=== PATIENT | male | born 1965 | race Two or more races ===

== ENCOUNTER 2020-09-19 07:16 | Inpatient (IN) | payer MEDICAID ==
[~2020-09-19] VITALS: Ht 170.2 cm; Wt 101.2 kg
--- NOTE | 2020-09-19 07:18 | NUR ---
Payal jaquez in [facility] - 09/19/20 [address] DOW AT [facility]
--- NOTE | 2020-09-19 07:21 | NUR ---
[id number], from home, c/o weakness x 2 days, BS 137. to ER bed 9, hooked to case monitor, BP cuff and POX, VSS. changed to hosp gown, warm blanket provided, patient AAO x 1, breathing even and unlabored. NAD noted. awaiting MD islas.
--- NOTE | 2020-09-19 07:21 | NUR ---
DR DOW AT BEDSIDE
[2020-09-19] MEDS ORDERED: IV NS 0.9% 1,000 ML BAG IV ONE (07:30)
[2020-09-19 07:47] LABS: BASOPHILS % (AUTO) 0.6 % (0.0-2.0); EOSINOPHILS % (AUTO) 1.7 % (0.0-6.0); HEMATOCRIT 37 % (39-51); LYMPHOCYTES # (AUTO) 1.8 /CMM (0.8-4.8); LYMPHOCYTES % (AUTO) 29.7 % (20.0-44.0); MEAN CORPUSCULAR HGB CONC 35 g/dl (31.0-36.0); MEAN CORPUSCULAR VOLUME 96 fL (80-96); MONOCYTES # (AUTO) 0.9 /CMM (0.1-1.30); MONOCYTES % (AUTO) 15.7 % (2.0-12.0); NEUTROPHILS # (AUTO) 3.1 /CMM (1.8-8.9); NEUTROPHILS % (AUTO) 52.3 % (43.0-81.0); PLATELET COUNT (AUTO) 131 /CMM (150-450); RED BLOOD CELL COUNT(AUTO) 3.86 MIL/uL (4.5-6.0); WHITE BLOOD COUNT (AUTO) 5.9 K/uL (4.3-11.0)
[2020-09-19 07:57] LABS: ALCOHOL, BLOOD < 3 mg/dL (0-0); CALCIUM, SERUM 9.2 mg/dL (8.5-10.1); CARBON DIOXIDE 22 mmol/L (21-32); CHLORIDE 99 mmol/L (98-107); CREATININE 1.6 mg/dL (0.6-1.3); GLUCOSE 166 mg/dL (74-106); POTASSIUM 4.8 mmol/L (3.5-5.1); SODIUM SERUM 133 mmol/L (136-145); UREA NITROGEN, BLOOD 42 mg/dL (7-18)
[2020-09-19 08:01] LABS: SERUM AMMONIA 142 umol/L (11-32)
--- NOTE | 2020-09-19 08:01 | NUR ---
RAPID COVID SWAB DONE AND SENT TO LAB
--- NOTE | 2020-09-19 08:02 | NUR ---
PHYSICIAN INTENSIVIST AT BEDSIDE
[2020-09-19 08:03] LABS: ALANINE AMINOTRANSFERASE 32 U/L (12-78); ALBUMIN 3.1 g/dL (3.4-5.0); ALKALINE PHOSPHATASE 141 U/L (46-116); ASPARTATE AMINOTRANSFERASE 53 U/L (15-37); BILIRUBIN,DIRECT 0.9 mg/dL (0.0-0.2); BILIRUBIN,TOTAL 2.7 mg/dL (0.2-1.0); TOTAL PROTEIN, SERUM 8.4 g/dL (6.4-8.2)
--- NOTE | 2020-09-19 08:23 | NUR ---
PATIENT WHEELED BACK VIA GURNEY BY [employer] FROM CT SCAN
[2020-09-19] MEDS ORDERED: FAMO20TA8 PO (08:31)
[2020-09-19] MEDS ORDERED: LEVO50TA8 PO (08:31)
[2020-09-19] MEDS ORDERED: CHOL200059 PO (08:31)
[2020-09-19] MEDS ORDERED: THIA100T88 PO (08:31)
[2020-09-19] MEDS ORDERED: ASCO500T20 PO (08:31)
[2020-09-19] MEDS ORDERED: METF-881 PO (08:31)
--- NOTE | 2020-09-19 08:33 | NUR ---
URINE SAMPLE COLLECTED VIA STRAIGHT CATHETER. URINE SAMPLE SENT TO LAB
[2020-09-19 08:38] LABS: THYROID STIMULATING HORMONE 3.837 uIU/mL (0.358-3.74)
[2020-09-19 08:40] LABS: EOSINOPHILS % (MANUAL) 2 % (0-4); LYMPHOCYTES % (MANUAL) 25 % (16-48); MONOCYTES % (MANUAL) 15 % (0-11.0); NEUTROPHILS % (MANUAL) 58 (42-76)
--- NOTE | 2020-09-19 08:47 | NUR ---
CONTRACT ADMINISTRATIVE ASSISTANT AT BEDSIDE FOR MARJ
[2020-09-19] MEDS ORDERED: LACTULOSE 10 G/15 ML UDC (PYXIS) PO ONE (09:00)
[2020-09-19 09:05] LABS: BILIRUBIN,URINE NEGATIVE (NEGATIVE); COLOR,URINE YELLOW (YELLOW); LEUKOCYTE ESTERASE ,URINE NEGATIVE (NEGATIVE); NITRITE, URINE NEGATIVE (NEGATIVE); PROTEIN,URINE NEGATIVE (NEGATIVE); UGLUCOSE NEGATIVE (NEGATIVE); UROBILINOGEN,URINE 0.2 EU/dL (0.2)
[2020-09-19] MEDS ORDERED: LACTULOSE 10 G/15 ML UDC (PYXIS) ONE (09:19)
[2020-09-19] MEDS ORDERED: ACETAMINOPHEN 325 MG TABLET PO PRN ×2 (09:30→13:00)
[2020-09-19] MEDS ORDERED: ZOLPIDEM TARTRATE 5 MG TABLET PO PRN (09:30)
[2020-09-19] MEDS ORDERED: Z GUARD REMEDY 2 OZ OINT TP PRN (09:30)
[2020-09-19] MEDS ORDERED: HYDROCODONE/APAP 5/325MG TABLET PO PRN (09:30)
[2020-09-19] MEDS ORDERED: MAGNESIUM HYDROXIDE 30 ML UDC PO PRN (09:30)
[2020-09-19] MEDS ORDERED: ONDANSETRON HCL/PF 4 MG/2 ML VIAL IVP PRN ×2 (09:30→13:00)
--- NOTE | 2020-09-19 09:44 | NUR ---
OPTICAL LABORATORY MANAGER AT BEDSIDE FOR BLOOD CULTURE
--- NOTE | 2020-09-19 09:47 | NUR ---
RECEIVED RESULTS FROM LAB: RAPID COVID NEGATIVE
--- NOTE | 2020-09-19 09:49 | NUR ---
ASKED MS BED FROM [facility] DX: ACUTE METABOLIC ENCEPHALOPATHY
--- NOTE | 2020-09-19 11:06 | NUR ---
GOT BED 329
--- NOTE | 2020-09-19 11:06 | NUR ---
lactic reflex 2.1
--- NOTE | 2020-09-19 11:49 | NUR ---
MESERET HAMPTON NP AT BEDSIDE
--- NOTE | 2020-09-19 11:55 | NUR ---
REPORT GIVEN TO ARNAV MARTI OF MS UNIT
[2020-09-19 12:00] VITALS: BP 130/70
--- NOTE | 2020-09-19 12:30 | NUR ---
MS/RN - Admission Received patient from ER, awake, A/O x 1-2, confused, reality orientation given, denies pain, stable on room air without distress. Saline lock on the RAC is patent, intact, with no signs of infiltration. Skin is intact. Patient ambulates with assistance. All belongings accounted. Patient oriented to room and use of call light. All needs attended. Fall precautions maintained. Will continue to monitor closely.
[2020-09-19 12:44] VITALS: BP 122/67
[2020-09-19] MEDS ORDERED: FUROSEMIDE 40 MG/4 ML VIAL IV ONE (13:00)
[2020-09-19] MEDS: HEPARIN SODIUM, PORCINE 5000 UNITS/1 ML VIAL SQ SCH ×2 (13:09→22:10)
[2020-09-19 16:00] VITALS: BP 107/68
--- NOTE | 2020-09-19 17:52 | NUR ---
MS/RN - End of shift summary Patient in no acute distress, stable on room air, no c/o SOB, denies pain, afebrile, A/O x 1-2, needs frequent reorientation, Lasix 40 mg IVP given, diuresing well. Covid-19 PCR specimen collected and was sent to lab, droplet and contact isolation initiated. Patient is going to [place] [id number], endorsed to KAIA Howard for continuity of care. All belongings sent.
--- NOTE | 2020-09-19 19:40 | NUR ---
RN opening notes Received Pt from morning nurse. Pt is resting in bed comfortably. Pt is alert and orientedX2. Pt speaks Malay and able to make needs known. Respiration on room air with O2 sat is 98%. No SOB. No S/S of distress noted. IV site at RAC# 20 is clean, intact and flushes well. Safety precautions is maintained. Bed at low position, brakes locked, side rails upX2, urinal at the bedside and call light is within reach. Will continue to monitor.
[2020-09-20 04:00] VITALS: BP 113/68
[2020-09-20 04:52] VITALS: BP 113/68
--- NOTE | 2020-09-20 06:50 | NUR ---
RN closing notes Pt is resting in bed comfortably. Pt is alert and orientedX2. Pt speaks Dutch and able to make needs known. Respiration on room air with O2 sat is 95%. No SOB. No S/S of distress noted. Vs is stable. Afebrile. Routine meds were given as ordered. IV site at RAC# 20 is clean, intact and flushes well. Kept Pt clean, dry and comfortable. Safety precautions is maintained. Bed at low position, brakes locked, side rails upX2, urinal at the bedside and call light is within reach. Will endorse to morning nurse for RAVINDER.
[2020-09-20 06:59] LABS: BASOPHILS % (AUTO) 0.6 % (0.0-2.0); EOSINOPHILS % (AUTO) 1.8 % (0.0-6.0); HEMATOCRIT 35 % (39-51); HEMOGLOBIN 12.1 g/dL (13.5-17.5); LYMPHOCYTES # (AUTO) 1.8 /CMM (0.8-4.8); LYMPHOCYTES % (AUTO) 38.8 % (20.0-44.0); MEAN CORPUSCULAR HGB CONC 35 g/dl (31.0-36.0); MEAN CORPUSCULAR VOLUME 95 fL (80-96); MONOCYTES # (AUTO) 0.7 /CMM (0.1-1.30); MONOCYTES % (AUTO) 15.6 % (2.0-12.0); NEUTROPHILS % (AUTO) 43.2 % (43.0-81.0); PLATELET COUNT (AUTO) 114 /CMM (150-450); RED BLOOD CELL COUNT(AUTO) 3.65 MIL/uL (4.5-6.0); WHITE BLOOD COUNT (AUTO) 4.7 K/uL (4.3-11.0)
--- NOTE | 2020-09-20 07:30 | NUR ---
MS/RN OPENING NOTE Received patient awake in bed, A&O x 2-3, Malian speaking. Denies any s/s of pain/discomfort at this time. Breathing even and non-labored on RA, no SOB noted. No respiratory or cardiac distress noted. IV access noted on R AC #20, patent and intact, and flushing well. Bed locked to its lowest position, side rails x 2 up, bed alarm on. Will continue with current medical management.
[2020-09-20 07:36] LABS: CREATININE 1.4 mg/dL (0.6-1.3); MAGNESIUM 1.7 mg/dL (1.8-2.4); PHOSPHORUS 3.5 mg/dL (2.5-4.9); POTASSIUM 4.4 mmol/L (3.5-5.1)
[2020-09-20 08:00] VITALS: BP 116/65
[2020-09-20] MEDS: HEPARIN SODIUM, PORCINE 5000 UNITS/1 ML VIAL SQ SCH ×2 (08:28→21:55)
[2020-09-20] MEDS: Magnesium 1GM/D5W 100ML PREMIX 100 ML IV SCH ×2 (10:53→11:58)
--- NOTE | 2020-09-20 11:25 | NUR ---
MS/RN NOTE Followed up Denise NEVAREZ to have med recon done.
[2020-09-20 12:53] LABS: BAND % (MANUAL) 1 % (0.0-5.0); EOSINOPHILS % (MANUAL) 1 % (0-4); LYMPHOCYTES % (MANUAL) 37 % (16-48); MONOCYTES % (MANUAL) 13 % (0-11.0); NEUTROPHILS % (MANUAL) 48 (42-76)
--- NOTE | 2020-09-20 14:29 | NUR ---
MS/RN NOTE Notified Denise [employer] regarding patient's critical lab ammonia 204, states will place orders.
[2020-09-20] MEDS: LACTULOSE 10 G/15 ML UDC (PYXIS) PO SCH ×2 (15:10→21:51)
[2020-09-20 16:00] VITALS: BP 129/69
[2020-09-20 16:11] LABS: ALBUMIN 2.8 g/dL (3.4-5.0); BILIRUBIN,DIRECT 0.7 mg/dL (0.0-0.2); BILIRUBIN,TOTAL 2.6 mg/dL (0.2-1.0); TOTAL PROTEIN, SERUM 7.5 g/dL (6.4-8.2)
--- NOTE | 2020-09-20 18:55 | NUR ---
MS/RN CLOSING NOTE Patient resting in bed, A&O x 2-3, easily arousable to tactile and verbal stimulation. No complaints of any pain/discomfort at this time. Breathing even and non-labored on RA, no SOB noted. No respiratory or cardiac distress noted. IV access noted on R AC #20, patent and intact, and flushing well. Fall precautions maintained. Will endorse to overnight stocker nurse.
[2020-09-20 19:45] VITALS: BP 125/78
--- NOTE | 2020-09-20 19:55 | NUR ---
MS RN: CONTINUITY OF CARE Patient in bed, awake, A/O x2. On room air, denies SOB. Covid PCR pending result. Maintained isolation.
[2020-09-20 20:00] VITALS: BP 125/78
--- NOTE | 2020-09-20 21:58 | NUR ---
MS RN: ANTICOAGULANT H/H 12. PLT 114 No bleeding. Heparin injection given co-signed by KAIA Cooper.
[2020-09-21] MEDS: LACTULOSE 10 G/15 ML UDC (PYXIS) PO SCH ×4 (03:09→21:49)
--- NOTE | 2020-09-21 06:45 | NUR ---
MS RN: END OF SHIFT REPORT Patient in bed. A/O x2. Stable oxygenation on room air, 96%. Denies pain. Elevated Ammonia, on Lactulose q 6hours. Covid PCR pending result, r/o Covid. Maintained Contact/Droplet isolation
[2020-09-21 07:39] LABS: BASOPHILS % (AUTO) 0.4 % (0.0-2.0); EOSINOPHILS % (AUTO) 2.5 % (0.0-6.0); HEMATOCRIT 35 % (39-51); HEMOGLOBIN 12.1 g/dL (13.5-17.5); LYMPHOCYTES # (AUTO) 1.7 /CMM (0.8-4.8); LYMPHOCYTES % (AUTO) 39.8 % (20.0-44.0); MEAN CORPUSCULAR HGB CONC 35 g/dl (31.0-36.0); MEAN CORPUSCULAR VOLUME 96 fL (80-96); MONOCYTES # (AUTO) 0.8 /CMM (0.1-1.30); MONOCYTES % (AUTO) 18.1 % (2.0-12.0); NEUTROPHILS # (AUTO) 1.7 /CMM (1.8-8.9); NEUTROPHILS % (AUTO) 39.2 % (43.0-81.0); PLATELET COUNT (AUTO) 90 /CMM (150-450); WHITE BLOOD COUNT (AUTO) 4.2 K/uL (4.3-11.0)
--- NOTE | 2020-09-21 07:40 | NUR ---
RN OPENING NOTE THE PATIENT IS RECEIVED IN BED. PATIENT IS ALERT AND ORIENTED X3 WITH EPISODES OF FORGETFULNESS. IN ROOM AIR AND DENIES SOB. RESPIRATION REGULAR AND UNLABORED. DENIES PAIN. RFA G 22 PATENT AND SALINE LOCKED. BED LOW AND LOCKED. SIDE RIALS UP X3. CALL LIGHT WITHIN REACH. WILL CONTINUE TO MONITOR.
[2020-09-21 08:14] LABS: ALBUMIN 2.7 g/dL (3.4-5.0); BILIRUBIN,TOTAL 2.2 mg/dL (0.2-1.0); CALCIUM, SERUM 8.9 mg/dL (8.5-10.1); CREATININE 1.1 mg/dL (0.6-1.3); MAGNESIUM 1.7 mg/dL (1.8-2.4); PHOSPHORUS 3.3 mg/dL (2.5-4.9); POTASSIUM 4.4 mmol/L (3.5-5.1); TOTAL PROTEIN, SERUM 7.5 g/dL (6.4-8.2)
[2020-09-21] MEDS: HEPARIN SODIUM, PORCINE 5000 UNITS/1 ML VIAL SQ SCH ×2 (09:30→21:47)
[2020-09-21 09:34] LABS: EOSINOPHILS % (MANUAL) 4 % (0-4); LYMPHOCYTES % (MANUAL) 45 % (16-48); MONOCYTES % (MANUAL) 10 % (0-11.0); NEUTROPHILS % (MANUAL) 41 (42-76)
[2020-09-21] MEDS: Magnesium 1GM/D5W 100ML PREMIX 100 ML IV SCH ×2 (12:55→16:14)
--- NOTE | 2020-09-21 17:40 | NUR ---
MS RN NOTE RECEIVED PATIENT FROM MS2, PATIENT IS IN NO ACUTE DISTRESS. PATIENT IS A/O X 4. PATIENT IS ON ROOM AIR, NO SOB NOTED. VITAL SIGNS ARE WITHIN NORMAL LIMITS. PATIENT IS AMBULATORY. SAFETY PRECAUTIONS ARE IN PLACE. BED IN THE LOWEST POSITION WITH BREAKS ON. SIDE RAILS UP, CALL LIGHT WITHIN REACH. WILL CONTINUE TO MONITOR CLOSELY.
--- NOTE | 2020-09-21 17:42 | NUR ---
MS/RN NOTE PATIENT ALERT AND ORIENTED X3. DENIES PAIN. DENIES SOB. RESPIRATION REGULAR AND UNLABORED. OXYGEN SATURATION IN ROOM AIR IS AT 97%. PATIENT IS IN NO APPARENT DISTRESS. REPORT GIVEN TO NURSE TONEY. PATIENT TAKEN TO THE 3RD FLOOR AND IN STABLE CONDITION.
--- NOTE | 2020-09-21 19:40 | NUR ---
MS RN CLOSING NOTE PATIENT IS IN BED RESTING. PATIENT IS IN NO ACUTE DISTRESS. NO SOB NOTED. PATIENT IS ON ROOM AIR. PATIENT IS AWAKE AND STABLE. SAFETY PRECAUTIONS ARE IN PLACE. BED IS LOCKED AND IN THE LOWEST POSITION. SIDE RAILS ARE UP, CALL LIGHT WITHIN REACH. ENDORSE PATIENT TO STRATEGIC COMMUNICATIONS MANAGER NURSE FOR RAVINDER.
[2020-09-21 20:00] VITALS: BP 120/73
[2020-09-22] MEDS: LACTULOSE 10 G/15 ML UDC (PYXIS) PO SCH ×3 (04:02→15:00)
[2020-09-22 07:07] LABS: CALCIUM, SERUM 8.5 mg/dL (8.5-10.1); MAGNESIUM 1.5 mg/dL (1.8-2.4); POTASSIUM 4.1 mmol/L (3.5-5.1)
--- NOTE | 2020-09-22 07:47 | NUR ---
ASSEMBLER MOLDED FRAMES NOTES PT RESTING COMFORTABLY IN BED WITHOUT ANY DISTRESS NOTED. DENIES ANY PAIN OR ANY DISCOMFORT. ALL DUE MEDS GIVEN AND ALL NEEDS MET. KEPT HIM WARM AND COMFORTABLE AT ALL TIMES. WILL ENDORSE TO AM NURSE FOR CONTINUITY OF CARE.
[2020-09-22 08:09] VITALS: BP 124/64
[2020-09-22] MEDS: HEPARIN SODIUM, PORCINE 5000 UNITS/1 ML VIAL SQ SCH (09:07)
[2020-09-22] MEDS: Magnesium 1GM/D5W 100ML PREMIX 100 ML IV SCH ×2 (10:56→12:14)
[2020-09-22] MEDS ORDERED: LACT10SO58 PO (11:27)
[2020-09-22 12:04] LABS: ALBUMIN 2.7 g/dL (3.4-5.0); BILIRUBIN,DIRECT 0.7 mg/dL (0.0-0.2); BILIRUBIN,TOTAL 2.2 mg/dL (0.2-1.0); TOTAL PROTEIN, SERUM 7.3 g/dL (6.4-8.2)
--- NOTE | 2020-09-22 14:52 | NUR ---
MS/RN NOTE PATIENT IS ALERT AND ORIENTED X3. DENIES SOB. PATIENT IS IN ROOM AIR AND OXYGEN SATURATION LEVEL IS AT 99%. RESPIRATION REGULAR AND UNLABORED. DENIES PAIN. THE PATIENT IS IN NO APPARENT DISTRESS. DISCHARGE EDUCATION PROVIDED AND HE VERBALIZED UNDERSTANDING. IV LINE REMOVED FROM RFA, NO BLEEDING NOTE, COVERED WITH 2X2. ARRANGED TAXI FOR SENIOR TELECOMMUNICATIONS SPECIALIST GOING HOME.
--- NOTE | 2020-09-22 15:40 | NUR ---
MS/RN NOTE PATIENT LEFT THE HOSPITAL IN STABLE CONDITION VIA TAXI.
== END 2020-09-22 15:30 | disposition home or self-care (01) | DRG 279 ==
LOC: ER 07:20 → EDBD 11:29 → TELE 11:29 → MEDSG2 18:37 → MED 09-21 18:06
PROVIDERS: ADMIT Nurse Practitioner Acute Care; ATTEND Nurse Practitioner Acute Care
DX: K72.90 Hepatic failure, unspecified without coma (principal); I11.0 Hypertensive heart disease with heart failure; N17.0 Acute kidney failure with tubular necrosis; I50.31 Acute diastolic (congestive) heart failure; E87.1 Hypo-osmolality and hyponatremia; E03.9 Hypothyroidism, unspecified; D61.818 Other pancytopenia; K74.60 Unspecified cirrhosis of liver; E11.65 Type 2 diabetes mellitus with hyperglycemia; Z79.84 Long term (current) use of oral hypoglycemic drugs; E87.2 Acidosis; Z20.822 Contact with and (suspected) exposure to COVID-19
CPT/HCPCS: 36415; 70450-TC; 71045-TC; 76705-TC; 80048-TC; 80053-TC; 80061-TC; 80076-TC; 82140-TC; 83605-TC; 83735-TC; 83880; 84100-TC; 84439-TC; 84443-TC; 84484-TC; 85025-TC; 85730-TC; 87040-TC; 87081-TC; 93307-TC; 97116-TC; 97530-TC; C9803; G0378; G0480; J1644; J1940; J3475; J7040; J7050; U0003

== ENCOUNTER 2020-11-29 07:22 | Inpatient (IN) | payer MEDICAID ==
[~2020-11-29] VITALS: Ht 167.6 cm; Wt 102.5 kg
[~2020-11-29 07:22] MED LIST: ASCO500T20 PO; CHOL200059 PO; FAMO20TA8 PO; LACT10SO58 PO; LEVO50TA8 PO; METF-881 PO; THIA100T88 PO
--- NOTE | 2020-11-29 07:29 | NUR ---
DR LEIJA AT BEDSIDE FOR EVAL.
--- NOTE | 2020-11-29 07:35 | NUR ---
KOSTA JOVEL STARTED BLOOD DRAWN AND SENT TO LAB.
--- NOTE | 2020-11-29 07:47 | NUR ---
MOVE SHEET SUBMITTED
[2020-11-29 07:49] LABS: BASOPHILS % (AUTO) 0.8 % (0.0-2.0); EOSINOPHILS % (AUTO) 2.3 % (0.0-6.0); HEMATOCRIT 37 % (39-51); HEMOGLOBIN 12.6 g/dL (13.5-17.5); LYMPHOCYTES # (AUTO) 1.5 /CMM (0.8-4.8); LYMPHOCYTES % (AUTO) 31.3 % (20.0-44.0); MEAN CORPUSCULAR HGB CONC 35 g/dl (31.0-36.0); MEAN CORPUSCULAR VOLUME 102 fL (80-96); MONOCYTES # (AUTO) 0.6 /CMM (0.1-1.30); MONOCYTES % (AUTO) 12.1 % (2.0-12.0); NEUTROPHILS # (AUTO) 2.5 /CMM (1.8-8.9); NEUTROPHILS % (AUTO) 53.5 % (43.0-81.0); PLATELET COUNT (AUTO) 86 /CMM (150-450); RED BLOOD CELL COUNT(AUTO) 3.61 MIL/uL (4.5-6.0); WHITE BLOOD COUNT (AUTO) 4.7 K/uL (4.3-11.0)
--- NOTE | 2020-11-29 07:54 | NUR ---
PATIENT TO RADIOLOGY FOR HEAD CT SCAN VIA GURNEY.
[2020-11-29 07:59] LABS: CALCIUM, SERUM 9.7 mg/dL (8.5-10.1); CARBON DIOXIDE 26 mmol/L (21-32); CHLORIDE 106 mmol/L (98-107); CREATININE 1.2 mg/dL (0.6-1.3); GLUCOSE 191 mg/dL (74-106); POTASSIUM 4.7 mmol/L (3.5-5.1); SODIUM SERUM 141 mmol/L (136-145); UREA NITROGEN, BLOOD 18 mg/dL (7-18)
[2020-11-29 08:05] LABS: ALANINE AMINOTRANSFERASE 26 U/L (12-78); ALBUMIN 3.4 g/dL (3.4-5.0); ALKALINE PHOSPHATASE 173 U/L (46-116); ASPARTATE AMINOTRANSFERASE 36 U/L (15-37); BILIRUBIN,DIRECT 0.8 mg/dL (0.0-0.2); BILIRUBIN,TOTAL 2.5 mg/dL (0.2-1.0); TOTAL PROTEIN, SERUM 8.1 g/dL (6.4-8.2)
[2020-11-29 08:06] LABS: ACETAMINOPHEN < 10 ug/ml (10-30); ALCOHOL, BLOOD < 3 mg/dL (0-0)
[2020-11-29 08:07] LABS: SERUM AMMONIA 158 umol/L (11-32)
[2020-11-29] MEDS ORDERED: FURO40TA5 PO (08:51)
[2020-11-29] MEDS ORDERED: LACTULOSE 10 G/15 ML UDC (PYXIS) PO ONE (09:00)
[2020-11-29] MEDS ORDERED: LACTULOSE 10 G/15 ML UDC (PYXIS) ONE (09:23)
[2020-11-29 10:00] VITALS: BP 127/69
--- NOTE | 2020-11-29 10:09 | NUR ---
GOT BED 323-1
--- NOTE | 2020-11-29 10:28 | NUR ---
REPORT GIVEN TO TIFFANY MARTI. AWAITING TRANSFER TO FLOOR.
--- NOTE | 2020-11-29 11:00 | NUR ---
pt. admitted to 323-1.sluggish in appearance.skin warm and dry. vs stable.hooked up to tele sr rate between 84-100.side rails up.not answering questions ot verbal at this time.
[2020-11-29 11:15] LABS: EOSINOPHILS % (MANUAL) 2 % (0-4); LYMPHOCYTES % (MANUAL) 38 % (16-48); MONOCYTES % (MANUAL) 7 % (0-11.0); NEUTROPHILS % (MANUAL) 53 (42-76)
[2020-11-29] MEDS ORDERED: DEXTROSE 50%-WATER 50 ML DISP.SYRIN IV PRN (13:00)
[2020-11-29] MEDS ORDERED: MAGNESIUM HYDROXIDE 30 ML UDC PO PRN (13:00)
[2020-11-29] MEDS ORDERED: ZOLPIDEM TARTRATE 5 MG TABLET PO PRN (13:00)
[2020-11-29] MEDS ORDERED: Z GUARD REMEDY 2 OZ OINT TP PRN (13:00)
[2020-11-29] MEDS ORDERED: ONDANSETRON HCL/PF 4 MG/2 ML VIAL IVP PRN (13:00)
[2020-11-29] MEDS ORDERED: ACETAMINOPHEN 325 MG TABLET PO PRN (13:00)
--- NOTE | 2020-11-29 13:46 | NUR ---
[employer]ell archivist [employer] here and writing orders.
[2020-11-29] MEDS: LACTULOSE 10 G/15 ML UDC (PYXIS) PO SCH ×2 (14:44→20:10)
[2020-11-29 15:51] LABS: THYROID STIMULATING HORMONE 3.097 uIU/mL (0.358-3.74)
[2020-11-29 16:00] VITALS: BP 140/65
[2020-11-29] MEDS: BLOOD SUGAR DIAGNOSTIC 1 EACH STRIP IN SCH ×2 (17:33→22:48)
[2020-11-29] MEDS: FAMOTIDINE (20 MG) 20 MG TABLET PO SCH (17:50)
--- NOTE | 2020-11-29 18:00 | NUR ---
unable to give insulin coverage as pt. still lethargic and not eating.no iv.had multiple doses of lactulose today with no stool yet.
[2020-11-29 20:00] VITALS: BP 112/59
--- NOTE | 2020-11-29 20:43 | NUR ---
RN NOTES PT ASLEEP IN BED BUT EASILY WOKEN UP.ALERT TO NAME. NO PAIN OR DISCOMFORT VISIBLE OR REPORTED AT THIS TIME PT ON ROOM AIR TOLERATING WELL. SAFETY MEASURES FOLLOWED ASPIRATION PRECAUTIONS IN PLACE. CALL LIGHT WITHIN REACH WILL CONTINUE TO MONITOR.
[2020-11-30] MEDS: LACTULOSE 10 G/15 ML UDC (PYXIS) PO SCH ×4 (01:11→19:56)
--- NOTE | 2020-11-30 06:34 | NUR ---
RN NOTES PT ASLEEP IN BED BUT EASILY WOKEN UP.A/OX 2-3. NO PAIN OR DISCOMFORT VISIBLE OR REPORTED AT THIS TIME PT ON ROOM AIR TOLERATING WELL.SAFETY MEASURES FOLLOWED ASPIRATION PRECAUTIONS IN PLACE. CALL LIGHT WITHIN REACH WILL ENDORSE CARE TO DAY SHIFT NURSE
[2020-11-30] MEDS: BLOOD SUGAR DIAGNOSTIC 1 EACH STRIP IN SCH ×4 (06:36→22:18)
[2020-11-30 06:44] LABS: BASOPHILS % (AUTO) 0.7 % (0.0-2.0); EOSINOPHILS % (AUTO) 3.7 % (0.0-6.0); HEMATOCRIT 35 % (39-51); HEMOGLOBIN 12.1 g/dL (13.5-17.5); LYMPHOCYTES # (AUTO) 1.5 /CMM (0.8-4.8); MEAN CORPUSCULAR HGB CONC 34 g/dl (31.0-36.0); MEAN CORPUSCULAR VOLUME 101 fL (80-96); MONOCYTES # (AUTO) 0.7 /CMM (0.1-1.30); MONOCYTES % (AUTO) 13.6 % (2.0-12.0); NEUTROPHILS # (AUTO) 2.4 /CMM (1.8-8.9); PLATELET COUNT (AUTO) 78 /CMM (150-450); RED BLOOD CELL COUNT(AUTO) 3.49 MIL/uL (4.5-6.0); WHITE BLOOD COUNT (AUTO) 4.8 K/uL (4.3-11.0)
[2020-11-30 07:17] LABS: CALCIUM, SERUM 8.9 mg/dL (8.5-10.1); CREATININE 1.1 mg/dL (0.6-1.3); PHOSPHORUS 3.8 mg/dL (2.5-4.9); POTASSIUM 3.6 mmol/L (3.5-5.1)
[2020-11-30 07:26] LABS: MAGNESIUM 1.1 mg/dL (1.8-2.4)
--- NOTE | 2020-11-30 07:54 | NUR ---
MS RN OPENING NOTES PT IS ALERT AND ORIENTED X 3. PATIENT IS BREATHING EVENLY AND UNLABORED ON ROOM AIR. NO S/SX OF DISTRESS. PATIENT HAS LAC 18 GAUGE, PATENT AND INTACT. PATIENT HAS MARTINEZ CATHETER IN PLACE. SKIN IS INTACT PER REPORT. BED IS LOW, LOCKED, AND CALL LIGHT WITHIN REACH. WILL CONTINUE TO MONITOR THROUGHOUT SHIFT.
[2020-11-30 08:00] VITALS: BP 133/79
[2020-11-30] MEDS: FAMOTIDINE (20 MG) 20 MG TABLET PO SCH ×2 (08:27→16:54)
[2020-11-30] MEDS: ASCORBIC ACID 500 MG TABLET PO SCH (08:27)
[2020-11-30] MEDS: FUROSEMIDE 40 MG TABLET PO SCH (08:28)
[2020-11-30] MEDS: LEVOTHYROXINE SODIUM 50 MCG TABLET PO SCH (08:28)
[2020-11-30] MEDS: THIAMINE HCL 100 MG TABLET PO SCH (08:31)
[2020-11-30] MEDS ORDERED: MAGNESIUM OXIDE 400 MG TABLET PO ONE (09:30)
[2020-11-30] MEDS: INSULIN REGULAR, HUMAN 100 UNIT/ML 3 ML VIAL SQ PRN ×3 (11:26→22:20)
[2020-11-30] MEDS: HYDROCODONE/APAP 5/325MG TABLET PO PRN (17:36)
--- NOTE | 2020-11-30 17:38 | NUR ---
PATIENT COMPLAINED OF LEFT HIP PAIN 6/. PATIENT GIVEN PRN PAIN MEDICATION WILL REASSESS.
--- NOTE | 2020-11-30 18:36 | NUR ---
MS RN CLOSING NOTES PT IS ALERT AND ORIENTED X 3. PATIENT IS BREATHING EVENLY AND UNLABORED ON ROOM AIR. NO S/SX OF DISTRESS. PATIENT HAS LAC 18 GAUGE, PATENT AND INTACT. PATIENT HAS MARTINEZ CATHETER IN PLACE HAD YELLOW CLEAR URINE. SKIN IS INTACT. PATIENT IS ABLE TO MAKE NEEDS KNOWN AND NEEDS WERE MET THROUGHOUT SHIFT. BED IS LOW, LOCKED, AND CALL LIGHT WITHIN REACH. CONTINUE PLAN OF CARE AT THIS TIME. WILL REPORT TO EVENING SHIFT.
--- NOTE | 2020-11-30 19:30 | NUR ---
MS/RN OPENING NOTES RECEIVED PATIENT IN BED RESTING. PATIENT IS ALERT AND ORIENTED X 2-3. PATIENTS BREATHING IS EVEN AND UNLABORED. NO SIGNS ON SOB OR RESPIRATORY NOTED. PATIENT IN NO SIGNS OF DISTRESS. SAFETY MEASURES ARE IN PLACE, BED IS LOCKED AND PLACED IN THE LOW POSITION, CALL LIGHT IS WITHIN REACH. WILL CONTINUE WITH PATIENT PLAN OF CARE.
[2020-11-30 20:54] VITALS: BP 113/66
[2020-12-01] MEDS: LACTULOSE 10 G/15 ML UDC (PYXIS) PO SCH ×4 (00:55→19:13)
--- NOTE | 2020-12-01 06:21 | NUR ---
MS/RN OPENING NOTES PATIENT IN BED SLEEPING EASY TO AROUSE. PATIENT IS ALERT AND ORIENTED X 2-3. PATIENTS BREATHING IS EVEN AND UNLABORED. NO SIGNS ON SOB OR RESPIRATORY NOTED. PATIENT IN NO SIGNS OF DISTRESS. MARTINEZ CATH IN PLACE OUTPUT 65cc. IV ACCESS INTACT. ALL NEEDS MET. SAFETY MEASURES ARE IN PLACE, BED IS LOCKED AND PLACED IN THE LOW POSITION, CALL LIGHT IS WITHIN REACH. WILL ENDORSE CARE TO DAY SHIFT NURSE.
[2020-12-01 06:35] LABS: BASOPHILS % (AUTO) 0.5 % (0.0-2.0); EOSINOPHILS % (AUTO) 3.2 % (0.0-6.0); HEMATOCRIT 35 % (39-51); HEMOGLOBIN 12.1 g/dL (13.5-17.5); LYMPHOCYTES # (AUTO) 1.5 /CMM (0.8-4.8); LYMPHOCYTES % (AUTO) 23.1 % (20.0-44.0); MEAN CORPUSCULAR HGB CONC 35 g/dl (31.0-36.0); MEAN CORPUSCULAR VOLUME 100 fL (80-96); MONOCYTES # (AUTO) 0.8 /CMM (0.1-1.30); MONOCYTES % (AUTO) 12.8 % (2.0-12.0); NEUTROPHILS # (AUTO) 3.9 /CMM (1.8-8.9); NEUTROPHILS % (AUTO) 60.4 % (43.0-81.0); PLATELET COUNT (AUTO) 77 /CMM (150-450); RED BLOOD CELL COUNT(AUTO) 3.48 MIL/uL (4.5-6.0); WHITE BLOOD COUNT (AUTO) 6.4 K/uL (4.3-11.0)
[2020-12-01] MEDS: BLOOD SUGAR DIAGNOSTIC 1 EACH STRIP IN SCH ×4 (06:37→22:13)
[2020-12-01] MEDS: INSULIN REGULAR, HUMAN 100 UNIT/ML 3 ML VIAL SQ PRN ×4 (06:38→22:12)
[2020-12-01 07:03] LABS: CALCIUM, SERUM 8.3 mg/dL (8.5-10.1); CREATININE 1.3 mg/dL (0.6-1.3); PHOSPHORUS 3.3 mg/dL (2.5-4.9); POTASSIUM 3.9 mmol/L (3.5-5.1)
[2020-12-01 07:25] LABS: MAGNESIUM 1.2 mg/dL (1.8-2.4)
[2020-12-01 08:00] VITALS: BP 117/69
--- NOTE | 2020-12-01 08:00 | NUR ---
RN OPENING NOTE PATIENT IS RESTING IN BED. AROUSES TO TOUCH. A/O X3 AND NO COMPLAINT OF PAIN. NAUSEA REPORTED AND MEDS GIVEN. CURRENTLY ON RA WITH NO SOB OR RESPIRATORY DISTRESS PRESENT. IN BEDREST. F/C PRESENT. SKIN INTACT. NO EDEMA PRESENT. HL PRESENT ON L AC 18G. SAFETY MEASURES IN PLACE. SIDE RAILS RAISED. BED LOWERED. CALL LIGHT WITHIN REACH. WILL CONTINUE TO MONITOR.
--- NOTE | 2020-12-01 08:22 | NUR ---
RN CRITICAL LAB NOTE PATIENT CRITICAL AMMONIA VALUE OF 204. PATIENT IS FEELING LETHARGIC AND NAUSEATED. COMPLIANT WITH LACTULOSE BUT NO BOWEL MOVEMENTS OF YET. MD AWARE. WILL CONTINUE TO MONITOR.
[2020-12-01] MEDS: ASCORBIC ACID 500 MG TABLET PO SCH (08:30)
[2020-12-01] MEDS: LEVOTHYROXINE SODIUM 50 MCG TABLET PO SCH (08:30)
[2020-12-01] MEDS: FAMOTIDINE (20 MG) 20 MG TABLET PO SCH ×2 (08:30→16:57)
[2020-12-01] MEDS: FUROSEMIDE 40 MG TABLET PO SCH (08:31)
[2020-12-01] MEDS: THIAMINE HCL 100 MG TABLET PO SCH (08:33)
[2020-12-01] MEDS ORDERED: LACTULOSE UDC 200 G in SODIUM CHLORIDE IRRIG SOLUTION 400 ML IR SCH (09:00)
[2020-12-01] MEDS: Magnesium 1GM/D5W 100ML PREMIX 100 ML IV SCH ×4 (11:20→15:54)
[2020-12-01] MEDS ORDERED: SORBITOL SOLUTION 30 ML PO ONE (12:30)
--- NOTE | 2020-12-01 12:35 | NUR ---
RN INSULIN NOTE PATIENT BG OF 163. PATIENT REFUSING TO EAT MEALS. INSULIN NOT GIVEN. CHARGE NURSE AWARE. WILL CONTINUE TO MONITOR.
[2020-12-01 16:00] VITALS: BP 120/80
[2020-12-01] MEDS: HYDROCODONE/APAP 5/325MG TABLET PO PRN ×2 (17:08→20:40)
--- NOTE | 2020-12-01 17:19 | NUR ---
RN MEDICINE NOTE PATIENT REFUSE TYLENOL FOR PAIN. NOTES THAT IT CAUSES CHEST PAIN FOR HIM. NORCO OFFERED AND ACCEPTED. WILL CONTINUE TO MONITOR.
--- NOTE | 2020-12-01 18:05 | NUR ---
RN CLOSING NOTE PATIENT IS RESTING IN BED. AROUSES TO TOUCH. A/O X3 AND NO COMPLAINT OF PAIN. NAUSEA REPORTED AND MEDS GIVEN. CURRENTLY ON RA WITH NO SOB OR RESPIRATORY DISTRESS PRESENT. IN BEDREST. F/C PRESENT. SKIN INTACT. NO EDEMA PRESENT. HL PRESENT ON L AC 18G. ROUTINE MEDS GIVEN. SAFETY MEASURES IN PLACE. SIDE RAILS RAISED. BED LOWERED. CALL LIGHT WITHIN REACH. REPORT TO BE GIVEN TO NIGHT NURSE FOR RAVINDER.
[2020-12-01 20:00] VITALS: BP 133/84
--- NOTE | 2020-12-01 20:45 | NUR ---
MS/TELE/RN PATIENT IS AWAKE, ALERT, ORIENTED X3, C/O ABDOMINAL PAIN, UNABLE TO GIVE PAIN SCALE, NORCO 1 TAB WAS GIVEN ORDERED, WILL MONITOR.
--- NOTE | 2020-12-02 00:25 | NUR ---
MS/TELE/RN PATIENT IS SLEEPING AT THIS TIME, APPEAR COMFORTABLE, NO SIGNS OF DISTRESS NOTED, CALL LIGHT IN REACH, WILL CONTINUE TO MONITOR.
[2020-12-02] MEDS: LACTULOSE 10 G/15 ML UDC (PYXIS) PO SCH ×4 (01:35→18:59)
--- NOTE | 2020-12-02 06:06 | NUR ---
MS/TELE/RN PATIENT IS SLEEPING, APPEAR COMFORTABLE, NO SIGNS OF DISTRESS NOTED, ALL NEEDS ATTENDED AT THIS SHELLY, WILL CONTINUE TO MONITOR.
[2020-12-02] MEDS: BLOOD SUGAR DIAGNOSTIC 1 EACH STRIP IN SCH ×4 (06:42→21:15)
[2020-12-02 06:52] LABS: BASOPHILS # (AUTO) 0.1 /CMM (0.0-0.2); BASOPHILS % (AUTO) 0.7 % (0.0-2.0); EOSINOPHILS % (AUTO) 3.6 % (0.0-6.0); HEMATOCRIT 35 % (39-51); HEMOGLOBIN 12.2 g/dL (13.5-17.5); LYMPHOCYTES # (AUTO) 1.8 /CMM (0.8-4.8); MEAN CORPUSCULAR HGB CONC 35 g/dl (31.0-36.0); MEAN CORPUSCULAR VOLUME 100 fL (80-96); MONOCYTES % (AUTO) 12.9 % (2.0-12.0); NEUTROPHILS # (AUTO) 4.6 /CMM (1.8-8.9); NEUTROPHILS % (AUTO) 59.8 % (43.0-81.0); PLATELET COUNT (AUTO) 90 /CMM (150-450); RED BLOOD CELL COUNT(AUTO) 3.52 MIL/uL (4.5-6.0); WHITE BLOOD COUNT (AUTO) 7.7 K/uL (4.3-11.0)
[2020-12-02 07:16] LABS: CALCIUM, SERUM 8.4 mg/dL (8.5-10.1); CREATININE 1.1 mg/dL (0.6-1.3); MAGNESIUM 1.6 mg/dL (1.8-2.4); PHOSPHORUS 3.2 mg/dL (2.5-4.9); POTASSIUM 3.8 mmol/L (3.5-5.1)
--- NOTE | 2020-12-02 07:30 | NUR ---
RN MS NOTES PT IN BED, AWAKE, ALERT AND ORIENTED, NO COMPLAINT OF PAIN OR ANY DISCOMFORT, RESPIRATIONS NORMAL, CALL LIGHT WITHIN REACH, F/C IN PLACE, DRAINING TEA COLORED URINE, NEEDS ATTENDED.
[2020-12-02] MEDS: THIAMINE HCL 100 MG TABLET PO SCH (08:35)
[2020-12-02] MEDS: LEVOTHYROXINE SODIUM 50 MCG TABLET PO SCH (08:35)
[2020-12-02] MEDS: FUROSEMIDE 40 MG TABLET PO SCH (08:35)
[2020-12-02] MEDS: ASCORBIC ACID 500 MG TABLET PO SCH (08:35)
[2020-12-02] MEDS: FAMOTIDINE (20 MG) 20 MG TABLET PO SCH ×2 (08:35→16:34)
[2020-12-02] MEDS: Magnesium 1GM/D5W 100ML PREMIX 100 ML IV SCH ×2 (10:02→11:27)
[2020-12-02] MEDS: INSULIN REGULAR, HUMAN 100 UNIT/ML 3 ML VIAL SQ PRN ×3 (11:45→21:20)
[2020-12-02] MEDS ORDERED: POLYVINYL ALCOHOL 15 ML BOTTLE EACHEYE PRN (16:30)
--- NOTE | 2020-12-02 18:46 | NUR ---
RN MS NOTES PT IN BED, AWAKE, ALERT AND ORIENTED, DENIES PAIN, NOT IN DISTRESS, TOLERATES CURRENT DIET, WITH GOOD ORAL INTAKE, BLOOD SUGAR CHECK DONE, INSULIN GIVEN PER SLIDING SCALE ORDERED, PT STATED THAT HE IS STILL DIZZY AND WEAK TO WALK, MD AWARE, ALL NEEDS ATTENDED.
[2020-12-02 20:00] VITALS: BP 109/69
--- NOTE | 2020-12-02 21:38 | NUR ---
RN NOTES RECEIVED PATIENT IN BED, ALERT AND ORIENTED X3, WITH CONFUSION, CALM, COOPERATIVE, MARTINEZ CATHETER DRAINING WITH KARISHMA COLORED URINE WITH TINGED OF BLOOD, FALL PRECAUTION, WILL CONTINUE TO MONITOR.
[2020-12-03] MEDS: LACTULOSE 10 G/15 ML UDC (PYXIS) PO SCH ×4 (00:17→18:04)
--- NOTE | 2020-12-03 06:12 | NUR ---
RN NOTES ALERT AND ORIENTED X2, WITH CONFUSION, LETHARGIC, COOPERATIVE WITH CARE, MARTINEZ CATHETER DRAINING KARISHMA COLORED URINE, NO HEMATURIA, ASSISTED TO TOILET, FOR DISCHARGE PLANNING TO HOME
[2020-12-03] MEDS: INSULIN REGULAR, HUMAN 100 UNIT/ML 3 ML VIAL SQ PRN ×3 (06:35→17:10)
[2020-12-03] MEDS: BLOOD SUGAR DIAGNOSTIC 1 EACH STRIP IN SCH ×3 (06:39→17:05)
[2020-12-03 07:14] LABS: CALCIUM, SERUM 8.9 mg/dL (8.5-10.1); CREATININE 1.2 mg/dL (0.6-1.3); MAGNESIUM 1.5 mg/dL (1.8-2.4)
--- NOTE | 2020-12-03 07:37 | NUR ---
MS RN NOTES PATIENT RECEIVED IN BED RESTING COMFORTABLY. ALERT AND ORIENTED X 2 ISRAELI SPEAKING. ON ROOM AIR WITH NO SIGN OF RESPIRATORY DISTRESS AT THIS TIME WITH EVEN NON-LABORED BREATHING, AND NO SOB NOTED. PATIENT SKIN WARM AND DRY TO TOUCH. IV ACCESS INTACT AND PATENT. PATIENT DENIES PAIN AT THIS TIME. MARTINEZ CATHETER IN PLACE WITH URINE FLOWING BY GRAVITY. SAFETY PRECAUTIONS IMPLEMENTED WITH BED LOCKED, BED ALARM ON, BILATERAL SIDE RAILS UP, BED IN THE LOWEST POSITION AND CALL LIGHT WITHIN EASY. WILL CONTINUE TO MONITOR PATIENT.
[2020-12-03 08:00] VITALS: BP_SYST 114; BP_SYST 123; BP_DIAS 69; BP_DIAS 80
[2020-12-03] MEDS: THIAMINE HCL 100 MG TABLET PO SCH (08:14)
[2020-12-03] MEDS: FUROSEMIDE 40 MG TABLET PO SCH (08:14)
[2020-12-03] MEDS: ASCORBIC ACID 500 MG TABLET PO SCH (08:14)
[2020-12-03] MEDS: LEVOTHYROXINE SODIUM 50 MCG TABLET PO SCH (08:14)
[2020-12-03] MEDS: FAMOTIDINE (20 MG) 20 MG TABLET PO SCH ×2 (08:14→17:05)
[2020-12-03] MEDS: Magnesium 1GM/D5W 100ML PREMIX 100 ML IV SCH ×2 (10:52→12:14)
[2020-12-03] MEDS ORDERED: DOCU-141 PO (12:10)
[2020-12-03] MEDS ORDERED: LACT10SO3 PO (12:10)
--- NOTE | 2020-12-03 12:35 | NUR ---
MS RN NOTES REMOVED MARTINEZ CATHETER HOSPITALIST MESERET HAMPTON DNP INFORMED TO DO. WILL CARRY OUT ORDERS AND WILL CONTINUE TO MONITOR PATIENTS URINE OUTPUT.
[2020-12-03 15:55] VITALS: BP_SYST 123; BP_SYST 130; BP_DIAS 76; BP_DIAS 80
[2020-12-03 16:00] VITALS: BP 130/76
--- NOTE | 2020-12-03 18:22 | NUR ---
SECURITY OFFICER SUPERVISOR NOTES PATIENT ALERT AN ORIENTED X 2-3 UPPER SORBIAN SPEAKING. VITAL SIGNS WNL. PATIENT ON ROOM AIR WITH NO SIGNS OF RESPIRATORY DISTRESS WITH EVEN NON-LABORED BREATHING. IV ACCESS REMOVED, IV CATHETER INTACT AND APPLIED PRESSURE TO SITE. ID BAND REMOVED. PATIENT ACCOUNTED FOR ALL BELONGING. SKIN INTACT, SKIN ASSESSMENT DONE.PRESCRIPTION GIVEN TO PATIENT AND EXIT CARE PROVIDED. PATIENT LEFT UNIT VIA GURNEY ACCOMPANIED BY 2 CRYSTAL ATTACHER.
== END 2020-12-03 18:21 | disposition home health service (06) ==
LOC: ER 07:22 → TELE 10:23 → MED 15:45
PROVIDERS: ADMIT Nurse Practitioner Acute Care; ATTEND Nurse Practitioner Acute Care
DX: K74.60 Unspecified cirrhosis of liver (principal); G93.41 Metabolic encephalopathy; D61.818 Other pancytopenia; K72.90 Hepatic failure, unspecified without coma; E72.20 Disorder of urea cycle metabolism, unspecified; E03.9 Hypothyroidism, unspecified; E11.9 Type 2 diabetes mellitus without complications; I10 Essential (primary) hypertension; Z20.822 Contact with and (suspected) exposure to COVID-19; E11.65 Type 2 diabetes mellitus with hyperglycemia; Z79.84 Long term (current) use of oral hypoglycemic drugs; Z79.899 Other long term (current) drug therapy
CPT/HCPCS: 36415; 70450-TC; 71045-TC; 80048-TC; 80061-TC; 80076-TC; 82140-TC; 82962-TC; 83735-TC; 84100-TC; 84443-TC; 84484-TC; 85025-TC; 85730-TC; 87081-TC; 97112-TC; 97530-TC; C9803; G0378; G0480; J1815; J3475; J7040; J7050

== ENCOUNTER 2020-12-06 15:03 | Inpatient (IN) | payer MEDICAID ==
[~2020-12-06] VITALS: Ht 177.8 cm; Wt 102.1 kg
[~2020-12-06 15:03] MED LIST changes: +DOCU-141 PO; +FURO40TA5 PO; +LACT10SO3 PO; -LACT10SO58 PO
--- NOTE | 2020-12-06 15:15 | NUR ---
BIB RA 39 FROM HOME FOR ALTERED MENTAL STATUS,WAS JUST D/C'D 12/03/20 FOR HEPATIC ENCEPHALOPATHY. PATIENT IS ALERT TO HIS NAME. DENIES PAIN. IN ROOM AIR AND DENIES SOB. RESPIRATION REGULAR AND UNLABORED. THE PATIENT IS IN ER BED #9. ATTACHED ON A MONITOR. WARM BLANKET PROVIDED FOR COMFORT. WILL CONTINUE TO MONITOR.
[2020-12-06 15:40] LABS: BASOPHILS % (AUTO) 0.5 % (0.0-2.0); EOSINOPHILS % (AUTO) 0.1 % (0.0-6.0); HEMATOCRIT 37 % (39-51); HEMOGLOBIN 12.6 g/dL (13.5-17.5); LYMPHOCYTES % (AUTO) 13.7 % (20.0-44.0); MEAN CORPUSCULAR HGB CONC 34 g/dl (31.0-36.0); MEAN CORPUSCULAR VOLUME 101 fL (80-96); MONOCYTES # (AUTO) 0.9 /CMM (0.1-1.30); MONOCYTES % (AUTO) 13.5 % (2.0-12.0); NEUTROPHILS % (AUTO) 72.2 % (43.0-81.0); PLATELET COUNT (AUTO) 116 /CMM (150-450); RED BLOOD CELL COUNT(AUTO) 3.64 MIL/uL (4.5-6.0); WHITE BLOOD COUNT (AUTO) 6.9 K/uL (4.3-11.0)
[2020-12-06 15:55] LABS: ALANINE AMINOTRANSFERASE 29 U/L (12-78); ALBUMIN 3.3 g/dL (3.4-5.0); ALCOHOL, BLOOD < 3 mg/dL (0-0); ALKALINE PHOSPHATASE 189 U/L (46-116); ASPARTATE AMINOTRANSFERASE 50 U/L (15-37); BILIRUBIN,DIRECT 1.1 mg/dL (0.0-0.2); BILIRUBIN,TOTAL 3.1 mg/dL (0.2-1.0); CALCIUM, SERUM 9.3 mg/dL (8.5-10.1); CARBON DIOXIDE 22 mmol/L (21-32); CHLORIDE 99 mmol/L (98-107); CREATININE 1.6 mg/dL (0.6-1.3); GLUCOSE 232 mg/dL (74-106); POTASSIUM 5.1 mmol/L (3.5-5.1); SODIUM SERUM 134 mmol/L (136-145); TOTAL PROTEIN, SERUM 8.4 g/dL (6.4-8.2); UREA NITROGEN, BLOOD 29 mg/dL (7-18)
[2020-12-06 15:57] LABS: ACETAMINOPHEN < 0 ug/ml (10-30); SERUM AMMONIA 136 umol/L (11-32)
[2020-12-06] MEDS ORDERED: LACTULOSE 10 G/15 ML UDC (PYXIS) PO ONE (16:00)
[2020-12-06 16:09] LABS: THYROID STIMULATING HORMONE 2.924 uIU/mL (0.358-3.74)
--- NOTE | 2020-12-06 16:18 | NUR ---
the patient taken for ct
[2020-12-06] MEDS ORDERED: LACTULOSE 10 G/15 ML UDC (PYXIS) ONE (16:30)
[2020-12-06 16:49] LABS: BILIRUBIN,URINE Negative (NEGATIVE); COLOR,URINE DARK YELLOW (YELLOW); LEUKOCYTE ESTERASE ,URINE Trace (NEGATIVE); NITRITE, URINE Negative (NEGATIVE); PH,URINE 5.5 (5.0-8.0); PROTEIN,URINE Negative (NEGATIVE); UGLUCOSE Negative (NEGATIVE); UROBILINOGEN,URINE 0.2 EU/dL (0.2)
--- NOTE | 2020-12-06 16:51 | NUR ---
[facility] CALLED CAFETERIA ASSOCIATE PAGED.
[2020-12-06 16:54] LABS: BACTERIA,URINE Few /HPF (None Seen); SQUAMOUS EPITHELIAL CELL,UR Few /HPF (None Seen)
--- NOTE | 2020-12-06 17:02 | NUR ---
received a call from the lab regarding covid 19 result "negative".
--- NOTE | 2020-12-06 18:26 | NUR ---
BED 308-1
[2020-12-06] MEDS ORDERED: MAG HYDROX/AL HYDROX/SIMETH 30 ML UDC PO PRN (18:30)
[2020-12-06] MEDS ORDERED: ONDANSETRON HCL/PF 4 MG/2 ML VIAL IVP PRN (18:30)
[2020-12-06] MEDS ORDERED: MAGNESIUM HYDROXIDE 30 ML UDC PO PRN (18:30)
[2020-12-06] MEDS ORDERED: DEXTROSE 50%-WATER 50 ML DISP.SYRIN IV PRN (18:30)
[2020-12-06] MEDS ORDERED: Z GUARD REMEDY 2 OZ OINT TP PRN (18:30)
--- NOTE | 2020-12-06 19:30 | NUR ---
transfered the patient 308 per acls protocol
[2020-12-06 19:42] VITALS: BP 115/75
--- NOTE | 2020-12-06 19:50 | NUR ---
EMERGENCY MEDICAL TECHNICIAN BASIC NOTES REPORT RECEIVED FROM KAIA STOKES. PATIENT RECEIVED IN [facility] AT 1942. PATIENT A/OX1. NO SIGNS OF RESPIRATORY DISTRESS NOTED. NO FACIAL GRIMACING NOR GUARDING NOTED. PATIENT PUT ON TELE MONITOR ST 100s. SAFETY PRECAUTION IN PLACE: BED LOW POSITION, BRAKES LOCKED, BED RAILS UP 3X, BED ALARM IN PLACE, CALL LIGHT WITHIN REACH. WILL CONTINUE TO MONITOR.
[2020-12-06 20:00] VITALS: BP 115/75
[2020-12-06] MEDS: CEFTRIAXONE 1 G in IV D5W 50 ML IV SCH (20:16)
[2020-12-06] MEDS ORDERED: LACTULOSE UDC 200 G in SODIUM CHLORIDE IRRIG SOLUTION 400 ML IR ONE (20:30)
--- NOTE | 2020-12-06 21:00 | NUR ---
LUMBER CHAIN OFFBEARER NOTES LACTULOSE IRRIGATION PER RECTUM ADMINISTERED AND WILL RETAIN FOR AN HOUR ORDERED
[2020-12-06] MEDS: BLOOD SUGAR DIAGNOSTIC 1 EACH STRIP IN SCH (21:51)
--- NOTE | 2020-12-06 22:00 | NUR ---
OCEANOGRAPHIC METEOROLOGIST NOTES RECTAL CATHETER REMOVED,WITH SOFT LARGE STOOL NOTED.CLEANED AND KEPT DRY.
[2020-12-06] MEDS: LACTULOSE 10 G/15 ML UDC (PYXIS) PO SCH (22:25)
[2020-12-06] MEDS: INSULIN REGULAR, HUMAN 100 UNIT/ML 3 ML VIAL SQ PRN (23:25)
[2020-12-07] VITALS: BP 115/69
--- NOTE | 2020-12-07 03:20 | NUR ---
SERVICE CENTER SUPERVISOR NOTES REPORTED BY AUTOMOBILE SERVICE WRITER AIRTO,HEART RATE GOES UP TO 150 - 170,WITH CHEST PAIN, HOSPITALIST DYMITRY MADE AWARE WITH NEW ORDERS NOTED AND CARRIED OUT.
[2020-12-07] MEDS ORDERED: LORAZEPAM INJ 2 MG/ML VIAL IV ONE (03:30)
--- NOTE | 2020-12-07 03:30 | NUR ---
TRUCKING MANAGER NOTES STAT EKG WAS DONE BY RT,RESULT SENT TO HOSPITALIST DYMITRY,WITH BEW ORDERS NOTED AND CARRIED OUT
[2020-12-07] MEDS: HYDROCODONE/APAP 5/325MG TABLET PO PRN (03:47)
--- NOTE | 2020-12-07 03:47 | NUR ---
GROOVING LATHE TENDER NOTES PAIN MANAGEMENT C/O CHEST PAIN 8/10 ON PAIN SCALE,NORCO 5/325MG,1 TAB PO GIVEN ORDERED
[2020-12-07 04:00] VITALS: BP 104/66
[2020-12-07] MEDS ORDERED: ASPIRIN 325 MG TABLET PO ONE (04:00)
[2020-12-07] MEDS ORDERED: NITROGLYCERIN 0.4 MG/TAB BOTTLE SL PRN (04:00)
[2020-12-07] MEDS ORDERED: METOPROLOL TARTRATE INJ 5 MG/5 ML AMPUL IVP ONE (04:30)
--- NOTE | 2020-12-07 04:31 | NUR ---
VP BIOLOGY NOTES PATIENT PUT ON OXYGEN NC 3LPM. GIVEN 1ST DOSE OF NITRO, ASPIRIN, NORCO PER MD. DMITR. ORDERED. WILL CONTINUE TO MONITOR.
--- NOTE | 2020-12-07 04:55 | NUR ---
CLINICAL TRIAL COORDINATOR NOTES VS: 121/77 AND HR ON TELE MONITOR 185. GIVEN METOPROLOL 5MG SLOW IVP ORDERED BY DR. HAZEL.
--- NOTE | 2020-12-07 05:03 | NUR ---
BLOOD OR BLOOD BANK TECHNICIAN NOTES HEART RATE WENT DOWN TO 85 BPM SR ON TELE MONITOR. CHARGE NURSE AWARE. PATIENT PAIN WENT DOWN TO 3/10 FROM 8/10 AFTER INTERVENTIONS. PATIENT LOOKS MORE RELAXED. NO DISTRESSED NOTED. WILL CONTINUE TO MONITOR.
[2020-12-07 05:49] LABS: BASOPHILS % (AUTO) 0.7 % (0.0-2.0); HEMATOCRIT 34 % (39-51); HEMOGLOBIN 11.8 g/dL (13.5-17.5); LYMPHOCYTES # (AUTO) 1.3 /CMM (0.8-4.8); LYMPHOCYTES % (AUTO) 25.8 % (20.0-44.0); MEAN CORPUSCULAR HGB CONC 35 g/dl (31.0-36.0); MEAN CORPUSCULAR VOLUME 100 fL (80-96); MONOCYTES # (AUTO) 0.6 /CMM (0.1-1.30); MONOCYTES % (AUTO) 12.1 % (2.0-12.0); NEUTROPHILS % (AUTO) 59.4 % (43.0-81.0); PLATELET COUNT (AUTO) 105 /CMM (150-450); RED BLOOD CELL COUNT(AUTO) 3.35 MIL/uL (4.5-6.0); WHITE BLOOD COUNT (AUTO) 5.1 K/uL (4.3-11.0)
[2020-12-07 06:11] LABS: CALCIUM, SERUM 8.9 mg/dL (8.5-10.1); CREATININE 1.1 mg/dL (0.6-1.3); MAGNESIUM 1.7 mg/dL (1.8-2.4); PHOSPHORUS 3.5 mg/dL (2.5-4.9); POTASSIUM 3.8 mmol/L (3.5-5.1)
--- NOTE | 2020-12-07 07:00 | NUR ---
RN NOTES PATIENT IS IN BED A/O X 3 WITH NO SIGNS OF DISTRESS IN ROOM AIR. IV L UA INTACT SL. MARTINEZ CATHETER INTACT WITH URINE DRAINING. TELE MONITOR ON READING SR. SAFETY MEASURES ARE APPLIED, CALL LIGHT WITHIN REACH, WILL CONTINUE TO MONITOR.
--- NOTE | 2020-12-07 07:00 | NUR ---
ENTERTAINMENT DANCER CLOSING NOTES PATIENT IN BED WITH EYES CLOSED, BARELY WENT TO BED. PATIENT TOLERATING O2 OF 2-[address] LPM [address]. TELE MONITOR IN PLACE READING SR 85. NO S/S OF RESPIRATORY DISTRESS. NO C/O OF PAIN AT THE MOMENT. PATIENT ABLE TO MAKE NEEDS KNOWN. ALL NEEDS ATTENDED. ALL SCHEDULED AND PRN MEDS ADMINISTERED. SAFETY PRECAUTIONS KEPT IN PLACE THE WHOLE TIME: BED IN LOWEST, LOCKED POSITION; CALL LIGHT WITHIN REACH. NO SIGNIFICANT CHANGE FROM LAST SHIFT. MARTINEZ DRAINING CLEAR, YELLOW-ORANGE URINE. WILL ENDORSE CARE TO MORNING RN.
[2020-12-07] MEDS: INSULIN REGULAR, HUMAN 100 UNIT/ML 3 ML VIAL SQ PRN ×4 (07:07→21:58)
[2020-12-07] MEDS ORDERED: PANTOPRAZOLE 40 MG TABLET.DR PO SCH (07:30)
[2020-12-07 08:00] VITALS: BP 126/76
[2020-12-07] MEDS ORDERED: LACTULOSE UDC 200 G in SODIUM CHLORIDE IRRIG SOLUTION 400 ML IR ONE (08:00)
[2020-12-07] MEDS ORDERED: Magnesium 1GM/D5W 100ML PREMIX 100 ML IV SCH (08:00)
[2020-12-07] MEDS: BLOOD SUGAR DIAGNOSTIC 1 EACH STRIP IN SCH ×4 (08:01→22:04)
[2020-12-07] MEDS: THIAMINE HCL 100 MG TABLET PO SCH (08:32)
[2020-12-07] MEDS: LACTULOSE 10 G/15 ML UDC (PYXIS) PO SCH ×3 (08:32→16:40)
[2020-12-07] MEDS: FAMOTIDINE (20 MG) 20 MG TABLET PO SCH ×2 (08:33→16:40)
[2020-12-07] MEDS: CHOLECALCIFEROL 1,000 UNIT TABLET (VIT D3) PO SCH (08:33)
[2020-12-07] MEDS: DOCUSATE SODIUM 100 MG CAPSULE PO SCH ×2 (08:33→16:40)
[2020-12-07] MEDS: ASCORBIC ACID 500 MG TABLET PO SCH (08:33)
[2020-12-07] MEDS: LEVOTHYROXINE SODIUM 50 MCG TABLET PO SCH (08:33)
[2020-12-07] MEDS ORDERED: METFORMIN XR 500 MG TAB.SR.24H PO SCH (09:00)
[2020-12-07] MEDS ORDERED: FUROSEMIDE 40 MG TABLET PO SCH (09:00)
[2020-12-07] MEDS: METFORMIN XR 500 MG TAB.SR.24H PO SCH (10:09)
[2020-12-07] MEDS: RIFAXIMIN 550 MG TABLET PO SCH ×2 (10:09→16:40)
[2020-12-07] MEDS: METOPROLOL TARTRATE 50 MG TABLET PO SCH ×2 (12:23→17:11)
[2020-12-07 16:07] VITALS: BP 109/64
--- NOTE | 2020-12-07 18:52 | NUR ---
RN NOTES PATIENT IS IN BED A/O X 3-4 WITH NO SIGNS OF DISTRESS IN ROOM AIR. IV L UA INTACT SL. MARTINEZ CATHETER INTACT WITH URINE DRAINING. TELE MONITOR ON READING SR. SAFETY MEASURES ARE APPLIED, CALL LIGHT WITHIN REACH, ALL TREATMENTS AND CARE WAS PERFORMED ANTICIPATED, WILL ENDORSE TO THE NEXT CATH LAB RADIOLOGY TECHNICIAN NURSE.
--- NOTE | 2020-12-07 19:05 | NUR ---
MACHINING ASSOCIATE OPENING NOTES: RECEIVED PATIENT IN BED, AWAKE, TALKING TO HIS PHONE. NO S/S OF DISTRESS NOTED. CALL LIGHT WITHIN REACH. BED IN LOWEST AND LOCKED POSITION. BED ALARM ON. WITH MARTINEZ CATHETER INTEACT, KARISHMA COLORED URINE OUTPUT. AMBULATORY WITH MINIMAL ASSIST.
[2020-12-07 20:00] VITALS: BP 110/60
[2020-12-07] MEDS: CEFTRIAXONE 1 G in IV D5W 50 ML IV SCH (20:00)
[2020-12-08] VITALS: BP 100/58
[2020-12-08 04:00] VITALS: BP 104/68
[2020-12-08] MEDS: METOPROLOL TARTRATE 50 MG TABLET PO SCH ×3 (05:57→11:24)
[2020-12-08 06:00] LABS: BASOPHILS % (AUTO) 0.6 % (0.0-2.0); EOSINOPHILS % (AUTO) 3.3 % (0.0-6.0); HEMATOCRIT 32 % (39-51); HEMOGLOBIN 11.2 g/dL (13.5-17.5); LYMPHOCYTES # (AUTO) 1.6 /CMM (0.8-4.8); LYMPHOCYTES % (AUTO) 27.7 % (20.0-44.0); MEAN CORPUSCULAR HGB CONC 35 g/dl (31.0-36.0); MEAN CORPUSCULAR VOLUME 102 fL (80-96); MONOCYTES % (AUTO) 17.4 % (2.0-12.0); PLATELET COUNT (AUTO) 94 /CMM (150-450); RED BLOOD CELL COUNT(AUTO) 3.13 MIL/uL (4.5-6.0); WHITE BLOOD COUNT (AUTO) 5.9 K/uL (4.3-11.0)
[2020-12-08 06:12] LABS: CALCIUM, SERUM 8.1 mg/dL (8.5-10.1); CREATININE 1.2 mg/dL (0.6-1.3); MAGNESIUM 1.6 mg/dL (1.8-2.4); PHOSPHORUS 3.6 mg/dL (2.5-4.9); POTASSIUM 3.6 mmol/L (3.5-5.1)
[2020-12-08] MEDS: INSULIN REGULAR, HUMAN 100 UNIT/ML 3 ML VIAL SQ PRN ×2 (06:51→11:30)
--- NOTE | 2020-12-08 07:08 | NUR ---
CATALOGUE AND SPECIAL PRODUCTS MANAGER OPENING NOTE RECEIVED PATIENT IN BED. A/O X3-4. ON ROOM AIR, NO SOB NOTED. IN NO APPARENT DISTRESS. DENIES ANY PAIN OR DISCOMFORT AT THIS TIME. TELE MONITOR READING ON SR. MARTINEZ CATHETER IN PLACE, DRAINING YELLOW URINE. IV ACCESS ON L UA #20 G, INTACT. SAFETY MEASURES MAINTAINED. BED IN LOWEST POSITION, BRAKES LOCKED. SIDE RAILS UP X2. CALL LIGHT WITHIN REACH. WILL CONTINUE PLAN OF CARE.
[2020-12-08] MEDS: BLOOD SUGAR DIAGNOSTIC 1 EACH STRIP IN SCH ×2 (07:24→11:25)
[2020-12-08 08:12] VITALS: BP 115/70
[2020-12-08] MEDS: LACTULOSE 10 G/15 ML UDC (PYXIS) PO SCH ×2 (08:23→12:06)
[2020-12-08] MEDS: ASCORBIC ACID 500 MG TABLET PO SCH (08:23)
[2020-12-08] MEDS: CHOLECALCIFEROL 1,000 UNIT TABLET (VIT D3) PO SCH (08:23)
[2020-12-08] MEDS: DOCUSATE SODIUM 100 MG CAPSULE PO SCH (08:23)
[2020-12-08] MEDS: FAMOTIDINE (20 MG) 20 MG TABLET PO SCH (08:23)
[2020-12-08] MEDS: RIFAXIMIN 550 MG TABLET PO SCH (08:24)
[2020-12-08] MEDS: METFORMIN XR 500 MG TAB.SR.24H PO SCH (08:24)
[2020-12-08] MEDS: LEVOTHYROXINE SODIUM 50 MCG TABLET PO SCH (08:24)
[2020-12-08] MEDS: THIAMINE HCL 100 MG TABLET PO SCH (08:24)
[2020-12-08] MEDS: Magnesium 1GM/D5W 100ML PREMIX 100 ML IV SCH ×2 (08:46→09:52)
[2020-12-08] MEDS: HYDROCODONE/APAP 5/325MG TABLET PO PRN (09:58)
[2020-12-08 11:24] VITALS: BP 115/70
[2020-12-08] MEDS ORDERED: CEPH500C2 PO (14:25)
[2020-12-08] MEDS ORDERED: RIFA550T PO (14:25)
[2020-12-08] MEDS ORDERED: METO50TA16 PO (14:25)
[2020-12-08] MEDS ORDERED: LACT10SO58 PO (14:25)
--- NOTE | 2020-12-08 16:27 | NUR ---
MS RN NOTE PATIENT DISCHARGED. AMBULATORY. DISCHARGE INSTRUCTIONS AND HEALTH TEACHING GIVEN. PT VERBALIZED UNDERSTANDING. ACCOMPANIED DOWNSTAIRS. REMOVED MARTINEZ, IV LINE AND ID WRISTBAND. VS BP 108/70 OH 60 RR 20 T 97.8 SA02 98%
== END 2020-12-08 16:23 | disposition home health service (06) | DRG 279 ==
LOC: ER 15:23 → MED 19:04 → TELE 20:35 → MED 12-08 09:53
PROVIDERS: ADMIT Registered Nurse; ATTEND Registered Nurse
DX: K72.00 Acute and subacute hepatic failure without coma (principal); I21.A1 Myocardial infarction type 2; N17.0 Acute kidney failure with tubular necrosis; D61.818 Other pancytopenia; I50.33 Acute on chronic diastolic (congestive) heart failure; K74.60 Unspecified cirrhosis of liver; I11.0 Hypertensive heart disease with heart failure; N39.0 Urinary tract infection, site not specified; R00.0 Tachycardia, unspecified; R74.01 Elevation of levels of liver transaminase levels; E03.9 Hypothyroidism, unspecified; E11.65 Type 2 diabetes mellitus with hyperglycemia; E87.1 Hypo-osmolality and hyponatremia; Z91.19 Patient's noncompliance with other medical treatment and regimen; E66.9 Obesity, unspecified; Z68.32 Body mass index [BMI] 32.0-32.9, adult; G89.4 Chronic pain syndrome; Z20.822 Contact with and (suspected) exposure to COVID-19; Z79.84 Long term (current) use of oral hypoglycemic drugs; B96.89 Other specified bacterial agents as the cause of diseases classified elsewhere; E86.1 Hypovolemia
CPT/HCPCS: 36415; 70450-TC; 71045-TC; 80048-TC; 80076-TC; 81001; 82140-TC; 82962-TC; 83735-TC; 84100-TC; 84443-TC; 84484-TC; 85025-TC; 85730-TC; 87081-TC; 93307-TC; 97112-TC; 97116-TC; 97530-TC; C9803; G0378; G0480; J0696; J1815; J3475; J3490; J7050; J7060

== ENCOUNTER 2024-11-07 18:36 | Inpatient (IN) | payer MEDICAID, OTHER ==
[~2024-11-07] VITALS: Ht 170.2 cm; Wt 99.1 kg
[~2024-11-07 18:36] MED LIST changes: +CEPH500C2 PO; -LACT10SO3 PO; +LACT10SO58 PO; +METO50TA16 PO; +RIFA550T PO
[2024-11-07] MEDS: MORPHINE SULFATE INJ 2 MG/ML DISP.SYRIN IV ONE (19:30)
[2024-11-07] MEDS: ONDANSETRON HCL/PF 4 MG/2 ML VIAL IV ONE (19:30)
[2024-11-07 19:39] LABS: BASOPHILS % (AUTO) 0.8 % (0.0-2.0); EOSINOPHILS # (AUTO) 0.1 K/uL (0.0-0.7); HEMATOCRIT 24 % (39-51); HEMOGLOBIN 7.8 g/dL (13.5-17.5); MEAN CORPUSCULAR HEMOGLOBIN 30 PG (26.0-33.0); MEAN CORPUSCULAR HGB CONC 33 g/dl (31.0-36.0); MEAN CORPUSCULAR VOLUME 90 fL (80-96); MONOCYTES # (AUTO) 0.5 K/uL (0.1-1.30); MONOCYTES % (AUTO) 13.8 % (2.0-12.0); NEUTROPHILS # (AUTO) 2.3 K/uL (1.8-8.9); NEUTROPHILS % (AUTO) 57.4 % (43.0-81.0); PLATELET COUNT (AUTO) 137 K/uL (150-450); RED BLOOD CELL COUNT(AUTO) 2.65 MIL/uL (4.5-6.0); RED CELL DISTRIBUTION WIDTH 15.9 % (11.5-15.0); WHITE BLOOD COUNT (AUTO) 3.9 K/uL (4.3-11.0)
[2024-11-07 19:46] LABS: CALCIUM, SERUM 9.4 mg/dL (8.5-10.1)
[2024-11-07 19:51] LABS: CREATININE 9.8 mg/dL (0.6-1.3)
[2024-11-07 19:53] LABS: ALBUMIN 3.1 g/dL (3.4-5.0); BILIRUBIN,DIRECT 0.5 mg/dL (0.0-0.2); BILIRUBIN,TOTAL 1.1 mg/dL (0.2-1.0); TOTAL PROTEIN, SERUM 8.1 g/dL (6.4-8.2)
[2024-11-07] MEDS ORDERED: ONDANSETRON HCL/PF 4 MG/2 ML VIAL ONE (19:56)
[2024-11-07] MEDS ORDERED: MORPHINE SULFATE INJ 4 MG/ML DISP.SYRIN ONE (19:56)
[2024-11-07 21:03] LABS: APPEARANCE,URINE SLIGHTLY CLOUDY (CLEAR); BILIRUBIN,URINE NEGATIVE (NEGATIVE); BLOOD, URINE 3+ Ery/uL (NEGATIVE); COLOR,URINE YELLOW (YELLOW); KETONES,URINE NEGATIVE (NEGATIVE); LEUKOCYTE ESTERASE ,URINE 3+ (NEGATIVE); NITRITE, URINE NEGATIVE (NEGATIVE); PROTEIN,URINE 1+ mg/dl (NEGATIVE); UGLUCOSE NEGATIVE (NEGATIVE); UROBILINOGEN,URINE 0.2 EU/dL (0.2)
[2024-11-07 21:08] LABS: ANISOCYTOSIS 1+; EOSINOPHILS % (MANUAL) 2 % (0-4); LYMPHOCYTES % (MANUAL) 20 % (16-48); MONOCYTES % (MANUAL) 9 % (0-11.0); NEUTROPHILS % (MANUAL) 68 (42-76); PLATELET ESTIMATE DECREASED; REACTIVE LYMPHOCYTES 1 % (0-0)
[2024-11-07 21:09] LABS: ROULEAUX 1+
[2024-11-07 21:13] LABS: ADD URINE CULTURE YES; BACTERIA,URINE 2+ /HPF (None Seen); RBC,URINE 51-80 /HPF (0-2); SQUAMOUS EPITHELIAL CELL,UR 0-2 /HPF (None Seen); WBC,URINE 51-80 /HPF (0-3)
[2024-11-07] MEDS ORDERED: CEFTRIAXONE 1GM BAG (ER ONLY) 50 ML IV ONE (21:51)
[2024-11-07] MEDS: CEFTRIAXONE 1GM BAG (ER ONLY) 50 ML IV ONE (21:57)
[2024-11-07] MEDS ORDERED: CEFTRIAXONE 1GM BAG (ER ONLY) 1 GM/50 ML PIGGYBACK IV ONE (23:30)
[2024-11-07] MEDS ORDERED: ZOLPIDEM TARTRATE 5 MG TABLET PO PRN (23:30)
[2024-11-07] MEDS ORDERED: MAG HYDROX/AL HYDROX/SIMETH 30 ML UDC PO PRN (23:30)
[2024-11-07] MEDS ORDERED: IV 1/2NS 1000 ML 1,000 ML IV PRN (23:30)
[2024-11-07] MEDS ORDERED: ONDANSETRON HCL/PF 4 MG/2 ML VIAL IVP PRN (23:30)
[2024-11-07] MEDS ORDERED: ENOXAPARIN SODIUM 40 MG/0.4 ML DISP.SYRIN SQ SCH (23:30)
[2024-11-07] MEDS ORDERED: MAGNESIUM HYDROXIDE 30 ML UDC PO PRN (23:30)
[2024-11-07] MEDS ORDERED: Z GUARD REMEDY 4 OZ OINT TP PRN (23:30)
[2024-11-08] VITALS (7 sets, daily range): BP systolic 111–128; BP diastolic 65–75; TEMP 97.5–98.6; O2SAT 96–97
[2024-11-08] MEDS ORDERED: DEXTROSE 50%-WATER 50 ML DISP.SYRIN IV PRN (01:00)
[2024-11-08] MEDS: METOPROLOL TARTRATE 50 MG TABLET PO SCH (05:53)
[2024-11-08 06:16] LABS: BASOPHILS % (AUTO) 0.9 % (0.0-2.0); EOSINOPHILS # (AUTO) 0.1 K/uL (0.0-0.7); EOSINOPHILS % (AUTO) 3.3 % (0.0-6.0); HEMATOCRIT 22 % (39-51); HEMOGLOBIN 7.6 g/dL (13.5-17.5); LYMPHOCYTES % (AUTO) 26.2 % (20.0-44.0); MEAN CORPUSCULAR HEMOGLOBIN 31 PG (26.0-33.0); MEAN CORPUSCULAR HGB CONC 34 g/dl (31.0-36.0); MEAN CORPUSCULAR VOLUME 90 fL (80-96); MONOCYTES # (AUTO) 0.6 K/uL (0.1-1.30); MONOCYTES % (AUTO) 14.9 % (2.0-12.0); NEUTROPHILS % (AUTO) 54.7 % (43.0-81.0); PLATELET COUNT (AUTO) 117 K/uL (150-450); RED BLOOD CELL COUNT(AUTO) 2.48 MIL/uL (4.5-6.0); RED CELL DISTRIBUTION WIDTH 16.1 % (11.5-15.0); WHITE BLOOD COUNT (AUTO) 3.7 K/uL (4.3-11.0)
[2024-11-08 06:39] LABS: CALCIUM, SERUM 9.2 mg/dL (8.5-10.1); MAGNESIUM 2.5 mg/dL (1.8-2.4); POTASSIUM 3.9 mmol/L (3.5-5.1)
[2024-11-08] MEDS: INSULIN REGULAR, HUMAN 100 UNIT/ML 3 ML VIAL SQ PRN (06:52)
[2024-11-08] MEDS: BLOOD SUGAR DIAGNOSTIC 1 EACH STRIP VI SCH (07:24)
[2024-11-08] MEDS: PANTOPRAZOLE 40 MG TABLET.DR PO SCH (07:39)
[2024-11-08] MEDS: LEVOTHYROXINE SODIUM 50 MCG TABLET PO SCH (07:39)
[2024-11-08 07:54] LABS: CREATININE 9.5 mg/dL (0.6-1.3)
[2024-11-08 07:55] LABS: PHOSPHORUS 9.5 mg/dL (2.5-4.9)
[2024-11-08] MEDS: CHOLECALCIFEROL 1,000 UNIT TABLET (VIT D3) PO SCH (08:11)
[2024-11-08] MEDS: RIFAXIMIN 550 MG TABLET PO SCH (08:11)
[2024-11-08] MEDS: LACTULOSE 10 G/15 ML UDC (PYXIS) PO SCH (08:11)
[2024-11-08] MEDS: THIAMINE HCL 100 MG TABLET PO SCH (08:11)
[2024-11-08] MEDS: ASCORBIC ACID 500 MG TABLET PO SCH (08:11)
[2024-11-08] MEDS: BUMETANIDE INJ 4 MG in IV D5W 24 ML IV ONE (11:13)
[2024-11-08] MEDS: HEPARIN SODIUM, PORCINE 5000 UNITS/1 ML VIAL SQ SCH (13:02)
[2024-11-08] MEDS: CEFTRIAXONE 2 G in IV D5W 100 ML IV SCH (17:20)
[2024-11-08] MEDS: *INSULIN REGULAR(HUMULIN R)HUM 100 UNIT/ML VIAL SQ PRN (21:51)
[2024-11-08 22:42] LABS: APPEARANCE,URINE TURBID (CLEAR); BILIRUBIN,URINE NEGATIVE (NEGATIVE); BLOOD, URINE 3+ Ery/uL (NEGATIVE); COLOR,URINE YELLOW (YELLOW); KETONES,URINE NEGATIVE (NEGATIVE); LEUKOCYTE ESTERASE ,URINE 3+ (NEGATIVE); NITRITE, URINE NEGATIVE (NEGATIVE); PH,URINE 5.5 (5.0-8.0); PROTEIN,URINE 1+ mg/dl (NEGATIVE); UGLUCOSE NEGATIVE (NEGATIVE); UROBILINOGEN,URINE 0.2 EU/dL (0.2)
[2024-11-08 22:47] LABS: CREATININE, URINE 115.6 MG/DL (30.0-125.0); URINE TOTAL PROTEIN 73.2 mg/dL (0-11.9)
[2024-11-08 23:15] LABS: RBC,URINE 81-100 /HPF (0-2)
[2024-11-08 23:16] LABS: ADD URINE CULTURE YES; BACTERIA,URINE Moderate /HPF (None Seen); SQUAMOUS EPITHELIAL CELL,UR Moderate /HPF (None Seen)
[2024-11-08 23:45] LABS: EOSINOPHIL,URINE None Seen
[2024-11-09] VITALS: BP 129/66; TEMP 97.7; O2SAT 98
[2024-11-09 04:00] VITALS: BP 119/64; TEMP 97.7; O2SAT 98
[2024-11-09 06:29] LABS: BASOPHILS % (AUTO) 0.6 % (0.0-2.0); EOSINOPHILS # (AUTO) 0.1 K/uL (0.0-0.7); EOSINOPHILS % (AUTO) 3.2 % (0.0-6.0); HEMATOCRIT 23 % (39-51); HEMOGLOBIN 7.5 g/dL (13.5-17.5); LYMPHOCYTES # (AUTO) 0.9 K/uL (0.8-4.8); LYMPHOCYTES % (AUTO) 30.5 % (20.0-44.0); MEAN CORPUSCULAR HEMOGLOBIN 30 PG (26.0-33.0); MEAN CORPUSCULAR HGB CONC 33 g/dl (31.0-36.0); MEAN CORPUSCULAR VOLUME 90 fL (80-96); MONOCYTES # (AUTO) 0.4 K/uL (0.1-1.30); MONOCYTES % (AUTO) 12.2 % (2.0-12.0); NEUTROPHILS # (AUTO) 1.7 K/uL (1.8-8.9); NEUTROPHILS % (AUTO) 53.5 % (43.0-81.0); PLATELET COUNT (AUTO) 99 K/uL (150-450); RED BLOOD CELL COUNT(AUTO) 2.51 MIL/uL (4.5-6.0); RED CELL DISTRIBUTION WIDTH 15.9 % (11.5-15.0); WHITE BLOOD COUNT (AUTO) 3.1 K/uL (4.3-11.0)
[2024-11-09 06:44] LABS: ALBUMIN 2.9 g/dL (3.4-5.0); BILIRUBIN,TOTAL 0.9 mg/dL (0.2-1.0); CALCIUM, SERUM 9.4 mg/dL (8.5-10.1); MAGNESIUM 2.6 mg/dL (1.8-2.4); POTASSIUM 3.5 mmol/L (3.5-5.1); TOTAL PROTEIN, SERUM 7.7 g/dL (6.4-8.2)
[2024-11-09 07:24] LABS: CREATININE 9.8 mg/dL (0.6-1.3); PHOSPHORUS 9.4 mg/dL (2.5-4.9)
[2024-11-09 08:00] VITALS: BP 119/62; TEMP 97.5; O2SAT 96
[2024-11-09] MEDS: BUMETANIDE INJ 16 MG in IV NS 0.9% 16 ML IV ONE (10:23)
[2024-11-09 12:18] LABS: EOSINOPHILS % (MANUAL) 1 % (0-4); LYMPHOCYTES % (MANUAL) 21 % (16-48); MONOCYTES % (MANUAL) 9 % (0-11.0); NEUTROPHILS % (MANUAL) 69 (42-76); PLATELET ESTIMATE DECREASED
[2024-11-09 12:19] LABS: ANISOCYTOSIS 1+
[2024-11-09 20:00] VITALS: BP 125/66; TEMP 97.9; O2SAT 98
[2024-11-10] MEDS: ACETAMINOPHEN 325 MG TABLET PO PRN (05:08)
[2024-11-10 06:36] LABS: EOSINOPHILS % (AUTO) 3.2 % (0.0-6.0); HEMATOCRIT 23 % (39-51); HEMOGLOBIN 7.6 g/dL (13.5-17.5); MEAN CORPUSCULAR HEMOGLOBIN 30 PG (26.0-33.0); MEAN CORPUSCULAR HGB CONC 33 g/dl (31.0-36.0); MEAN CORPUSCULAR VOLUME 89 fL (80-96); MONOCYTES % (AUTO) 13.4 % (2.0-12.0); NEUTROPHILS % (AUTO) 52.9 % (43.0-81.0); PLATELET COUNT (AUTO) 99 K/uL (150-450); RED BLOOD CELL COUNT(AUTO) 2.57 MIL/uL (4.5-6.0); RED CELL DISTRIBUTION WIDTH 15.7 % (11.5-15.0); WHITE BLOOD COUNT (AUTO) 3.3 K/uL (4.3-11.0)
[2024-11-10 06:37] LABS: BASOPHILS % (AUTO) 0.5 % (0.0-2.0); EOSINOPHILS # (AUTO) 0.1 K/uL (0.0-0.7); MONOCYTES # (AUTO) 0.4 K/uL (0.1-1.30); NEUTROPHILS # (AUTO) 1.8 K/uL (1.8-8.9)
[2024-11-10 06:56] LABS: BILIRUBIN,TOTAL 0.8 mg/dL (0.2-1.0); CALCIUM, SERUM 9.7 mg/dL (8.5-10.1); MAGNESIUM 2.6 mg/dL (1.8-2.4); POTASSIUM 3.4 mmol/L (3.5-5.1); TOTAL PROTEIN, SERUM 7.9 g/dL (6.4-8.2)
[2024-11-10 08:00] VITALS: BP 111/62; TEMP 98.6; O2SAT 96
[2024-11-10 09:03] LABS: CREATININE 9.8 mg/dL (0.6-1.3)
[2024-11-10 15:17] LABS: ANISOCYTOSIS 1+; EOSINOPHILS % (MANUAL) 1 % (0-4); LYMPHOCYTES % (MANUAL) 30 % (16-48); MONOCYTES % (MANUAL) 6 % (0-11.0); NEUTROPHILS % (MANUAL) 63 (42-76); PLATELET ESTIMATE DECREASED
[2024-11-10 15:18] LABS: OVALOCYTES 1+
[2024-11-10 16:00] VITALS: BP 118/70; TEMP 97.8; O2SAT 96
[2024-11-10 20:00] VITALS: BP 119/67; TEMP 97.3; O2SAT 96
[2024-11-11] MEDS: HYDROCODONE/APAP 5/325MG TABLET PO ONE (01:42)
[2024-11-11 07:00] VITALS: BP 120/80; TEMP 97.7; O2SAT 99
[2024-11-11 08:07] LABS: HEPATITIS B CORE AB, IgM Negative (Negative); HEPATITIS B CORE AB, TOTAL Negative (Negative); HEPATITIS B SURFACE AB Non Reactive (.)
[2024-11-11 08:33] LABS: ALBUMIN 2.8 g/dL (3.4-5.0); BILIRUBIN,TOTAL 0.7 mg/dL (0.2-1.0); CALCIUM, SERUM 9.1 mg/dL (8.5-10.1); MAGNESIUM 2.5 mg/dL (1.8-2.4); POTASSIUM 3.2 mmol/L (3.5-5.1); TOTAL PROTEIN, SERUM 7.6 g/dL (6.4-8.2)
[2024-11-11 09:00] LABS: BASOPHILS % (AUTO) 0.8 % (0.0-2.0); EOSINOPHILS # (AUTO) 0.1 K/uL (0.0-0.7); EOSINOPHILS % (AUTO) 3.4 % (0.0-6.0); HEMATOCRIT 24 % (39-51); HEMOGLOBIN 7.8 g/dL (13.5-17.5); LYMPHOCYTES # (AUTO) 1.1 K/uL (0.8-4.8); LYMPHOCYTES % (AUTO) 32.1 % (20.0-44.0); MEAN CORPUSCULAR HEMOGLOBIN 30 PG (26.0-33.0); MEAN CORPUSCULAR HGB CONC 33 g/dl (31.0-36.0); MEAN CORPUSCULAR VOLUME 90 fL (80-96); MONOCYTES # (AUTO) 0.4 K/uL (0.1-1.30); MONOCYTES % (AUTO) 11.9 % (2.0-12.0); NEUTROPHILS # (AUTO) 1.8 K/uL (1.8-8.9); NEUTROPHILS % (AUTO) 51.8 % (43.0-81.0); PLATELET COUNT (AUTO) 100 K/uL (150-450); RED BLOOD CELL COUNT(AUTO) 2.63 MIL/uL (4.5-6.0); RED CELL DISTRIBUTION WIDTH 15.8 % (11.5-15.0); WHITE BLOOD COUNT (AUTO) 3.4 K/uL (4.3-11.0)
[2024-11-11 09:14] LABS: CREATININE 9.6 mg/dL (0.6-1.3); PHOSPHORUS 8.7 mg/dL (2.5-4.9)
[2024-11-11 16:00] VITALS: BP 132/66; TEMP 97.2; O2SAT 96
[2024-11-11 20:00] VITALS: BP 131/74; TEMP 97.8; O2SAT 97
[2024-11-11 23:37] VITALS: BP 131/74; TEMP 97.8; O2SAT 97
[2024-11-12 07:03] LABS: BASOPHILS % (AUTO) 0.6 % (0.0-2.0); EOSINOPHILS # (AUTO) 0.1 K/uL (0.0-0.7); EOSINOPHILS % (AUTO) 3.5 % (0.0-6.0); HEMATOCRIT 23 % (39-51); HEMOGLOBIN 7.7 g/dL (13.5-17.5); LYMPHOCYTES # (AUTO) 1.1 K/uL (0.8-4.8); LYMPHOCYTES % (AUTO) 28.8 % (20.0-44.0); MEAN CORPUSCULAR HEMOGLOBIN 30 PG (26.0-33.0); MEAN CORPUSCULAR HGB CONC 34 g/dl (31.0-36.0); MEAN CORPUSCULAR VOLUME 89 fL (80-96); MONOCYTES # (AUTO) 0.5 K/uL (0.1-1.30); MONOCYTES % (AUTO) 12.9 % (2.0-12.0); NEUTROPHILS # (AUTO) 2.1 K/uL (1.8-8.9); NEUTROPHILS % (AUTO) 54.2 % (43.0-81.0); PLATELET COUNT (AUTO) 51 K/uL (150-450); RED BLOOD CELL COUNT(AUTO) 2.55 MIL/uL (4.5-6.0); RED CELL DISTRIBUTION WIDTH 15.6 % (11.5-15.0)
[2024-11-12 07:12] LABS: ALBUMIN 2.8 g/dL (3.4-5.0); BILIRUBIN,TOTAL 0.7 mg/dL (0.2-1.0); MAGNESIUM 2.4 mg/dL (1.8-2.4); PHOSPHORUS 6.8 mg/dL (2.5-4.9); POTASSIUM 3.4 mmol/L (3.5-5.1); TOTAL PROTEIN, SERUM 7.7 g/dL (6.4-8.2)
[2024-11-12 07:24] LABS: CREATININE 8.1 mg/dL (0.6-1.3)
[2024-11-12 07:30] VITALS: BP 127/72; TEMP 97.7; O2SAT 98
[2024-11-12 08:00] VITALS: BP 127/72; TEMP 97.7; O2SAT 98
[2024-11-12 14:04] LABS: EOSINOPHILS % (MANUAL) 4 % (0-4); LYMPHOCYTES % (MANUAL) 31 % (16-48); MONOCYTES % (MANUAL) 1 % (0-11.0); NEUTROPHILS % (MANUAL) 64 (42-76); PLATELET ESTIMATE DECREASED
[2024-11-12 14:05] LABS: ANISOCYTOSIS 1+; HYPOCHROMASIA 1+
[2024-11-12 15:30] VITALS: BP 127/70; TEMP 98.1; O2SAT 97
[2024-11-12 15:55] VITALS: BP 127/70
[2024-11-12 16:00] VITALS: BP 127/70; TEMP 98.1; O2SAT 97
[2024-11-12] MEDS: MEROPENEM 500 MG in IV NS 0.9% 50 ML IV SCH (17:32)
[2024-11-12 20:00] VITALS: BP 122/61; TEMP 98.2; O2SAT 97
[2024-11-13 08:00] VITALS: BP 132/68; TEMP 98.1; O2SAT 98
[2024-11-13 08:20] LABS: INR 1.45 (0.91-1.10)
[2024-11-13 08:31] LABS: BASOPHILS % (AUTO) 0.4 % (0.0-2.0); EOSINOPHILS # (AUTO) 0.1 K/uL (0.0-0.7); EOSINOPHILS % (AUTO) 2.9 % (0.0-6.0); HEMATOCRIT 22 % (39-51); HEMOGLOBIN 7.4 g/dL (13.5-17.5); LYMPHOCYTES % (AUTO) 27.5 % (20.0-44.0); MEAN CORPUSCULAR HEMOGLOBIN 30 PG (26.0-33.0); MEAN CORPUSCULAR HGB CONC 34 g/dl (31.0-36.0); MEAN CORPUSCULAR VOLUME 90 fL (80-96); MONOCYTES # (AUTO) 0.5 K/uL (0.1-1.30); MONOCYTES % (AUTO) 14.6 % (2.0-12.0); NEUTROPHILS % (AUTO) 54.6 % (43.0-81.0); RED BLOOD CELL COUNT(AUTO) 2.43 MIL/uL (4.5-6.0); RED CELL DISTRIBUTION WIDTH 15.7 % (11.5-15.0); WHITE BLOOD COUNT (AUTO) 3.6 K/uL (4.3-11.0)
[2024-11-13 08:44] LABS: ALBUMIN 2.8 g/dL (3.4-5.0); BILIRUBIN,TOTAL 0.7 mg/dL (0.2-1.0); CALCIUM, SERUM 8.9 mg/dL (8.5-10.1); CREATININE 6.3 mg/dL (0.6-1.3); MAGNESIUM 2.2 mg/dL (1.8-2.4); PHOSPHORUS 4.9 mg/dL (2.5-4.9); POTASSIUM 3.7 mmol/L (3.5-5.1); TOTAL PROTEIN, SERUM 7.5 g/dL (6.4-8.2)
[2024-11-13 08:48] LABS: PLATELET COUNT (AUTO) 30 K/uL (150-450)
[2024-11-13 12:38] LABS: ANISOCYTOSIS 1+; HYPOCHROMASIA 1+; LYMPHOCYTES % (MANUAL) 19 % (16-48); MONOCYTES % (MANUAL) 5 % (0-11.0); NEUTROPHILS % (MANUAL) 76 (42-76); PLATELET ESTIMATE DECREASED
[2024-11-13 16:00] VITALS: BP 105/59; TEMP 98.1; O2SAT 99
[2024-11-13 20:00] VITALS: BP 128/65; TEMP 98.2; O2SAT 97
[2024-11-13 20:59] LABS: BASOPHILS % (AUTO) 0.5 % (0.0-2.0); EOSINOPHILS # (AUTO) 0.2 K/uL (0.0-0.7); EOSINOPHILS % (AUTO) 3.1 % (0.0-6.0); HEMATOCRIT 24 % (39-51); LYMPHOCYTES # (AUTO) 1.2 K/uL (0.8-4.8); MEAN CORPUSCULAR HEMOGLOBIN 29 PG (26.0-33.0); MEAN CORPUSCULAR HGB CONC 33 g/dl (31.0-36.0); MEAN CORPUSCULAR VOLUME 89 fL (80-96); MONOCYTES # (AUTO) 0.7 K/uL (0.1-1.30); MONOCYTES % (AUTO) 14.8 % (2.0-12.0); NEUTROPHILS # (AUTO) 2.8 K/uL (1.8-8.9); NEUTROPHILS % (AUTO) 57.6 % (43.0-81.0); RED BLOOD CELL COUNT(AUTO) 2.73 MIL/uL (4.5-6.0); RED CELL DISTRIBUTION WIDTH 15.8 % (11.5-15.0); WHITE BLOOD COUNT (AUTO) 4.9 K/uL (4.3-11.0)
[2024-11-13 21:09] LABS: PLATELET COUNT (AUTO) 21 K/uL (150-450)
[2024-11-14 06:37] VITALS: BP 138/70; TEMP 98.4
[2024-11-14 07:14] VITALS: BP 142/71; TEMP 97.8
[2024-11-14 07:41] LABS: ALBUMIN 2.7 g/dL (3.4-5.0); BILIRUBIN,TOTAL 0.9 mg/dL (0.2-1.0); CREATININE 4.9 mg/dL (0.6-1.3); POTASSIUM 3.7 mmol/L (3.5-5.1); TOTAL PROTEIN, SERUM 7.6 g/dL (6.4-8.2)
[2024-11-14 08:15] LABS: BASOPHILS % (AUTO) 0.9 % (0.0-2.0); EOSINOPHILS # (AUTO) 0.1 K/uL (0.0-0.7); EOSINOPHILS % (AUTO) 3.5 % (0.0-6.0); HEMATOCRIT 24 % (39-51); HEMOGLOBIN 7.9 g/dL (13.5-17.5); LYMPHOCYTES # (AUTO) 1.3 K/uL (0.8-4.8); LYMPHOCYTES % (AUTO) 33.6 % (20.0-44.0); MEAN CORPUSCULAR HEMOGLOBIN 30 PG (26.0-33.0); MEAN CORPUSCULAR HGB CONC 34 g/dl (31.0-36.0); MEAN CORPUSCULAR VOLUME 90 fL (80-96); MONOCYTES # (AUTO) 0.5 K/uL (0.1-1.30); MONOCYTES % (AUTO) 12.9 % (2.0-12.0); NEUTROPHILS # (AUTO) 1.9 K/uL (1.8-8.9); NEUTROPHILS % (AUTO) 49.1 % (43.0-81.0); RED BLOOD CELL COUNT(AUTO) 2.61 MIL/uL (4.5-6.0); RED CELL DISTRIBUTION WIDTH 15.6 % (11.5-15.0); WHITE BLOOD COUNT (AUTO) 3.9 K/uL (4.3-11.0)
[2024-11-14 08:22] LABS: PLATELET COUNT (AUTO) 20 K/uL (150-450)
[2024-11-14 08:24] VITALS: BP 128/66; TEMP 97.7; O2SAT 97
[2024-11-14] MEDS ORDERED: ALTEPLASE CATHFLO 2 MG/VIAL XX ONE (08:30)
[2024-11-14 08:52] LABS: BASOPHILS % (AUTO) 0.5 % (0.0-2.0); EOSINOPHILS # (AUTO) 0.2 K/uL (0.0-0.7); EOSINOPHILS % (AUTO) 3.6 % (0.0-6.0); HEMATOCRIT 24 % (39-51); HEMOGLOBIN 7.8 g/dL (13.5-17.5); LYMPHOCYTES # (AUTO) 1.3 K/uL (0.8-4.8); MEAN CORPUSCULAR HEMOGLOBIN 30 PG (26.0-33.0); MEAN CORPUSCULAR HGB CONC 33 g/dl (31.0-36.0); MEAN CORPUSCULAR VOLUME 90 fL (80-96); MONOCYTES # (AUTO) 0.7 K/uL (0.1-1.30); MONOCYTES % (AUTO) 14.3 % (2.0-12.0); NEUTROPHILS # (AUTO) 2.6 K/uL (1.8-8.9); NEUTROPHILS % (AUTO) 54.6 % (43.0-81.0); RED BLOOD CELL COUNT(AUTO) 2.62 MIL/uL (4.5-6.0); RED CELL DISTRIBUTION WIDTH 15.5 % (11.5-15.0); WHITE BLOOD COUNT (AUTO) 4.8 K/uL (4.3-11.0)
[2024-11-14 09:01] LABS: PLATELET COUNT (AUTO) 31 K/uL (150-450)
[2024-11-14] MEDS ORDERED: LIDOCAINE HCL/MPF 1% 30 ML VIAL IJ ONE (10:16)
[2024-11-14 11:07] LABS: PLATELET ESTIMATE DECREASED
[2024-11-14 11:09] LABS: ANISOCYTOSIS 1+
[2024-11-14 11:57] LABS: PLATELET ESTIMATE DECREASED
[2024-11-14 12:02] LABS: NEUTROPHILS % (MANUAL) 63 (42-76)
[2024-11-14 12:03] LABS: ANISOCYTOSIS 1+; LYMPHOCYTES % (MANUAL) 29 % (16-48); MONOCYTES % (MANUAL) 8 % (0-11.0)
[2024-11-14 16:09] VITALS: BP 120/62; TEMP 97.9; O2SAT 98
[2024-11-14 20:00] VITALS: BP 143/75; TEMP 97.5; O2SAT 95
[2024-11-15 07:15] LABS: ALBUMIN 2.9 g/dL (3.4-5.0); BILIRUBIN,TOTAL 0.9 mg/dL (0.2-1.0); CALCIUM, SERUM 9.6 mg/dL (8.5-10.1); CREATININE 5.8 mg/dL (0.6-1.3); MAGNESIUM 2.2 mg/dL (1.8-2.4); PHOSPHORUS 4.8 mg/dL (2.5-4.9); POTASSIUM 4.7 mmol/L (3.5-5.1); TOTAL PROTEIN, SERUM 7.9 g/dL (6.4-8.2)
[2024-11-15 07:42] LABS: BASOPHILS % (AUTO) 0.9 % (0.0-2.0); EOSINOPHILS # (AUTO) 0.2 K/uL (0.0-0.7); EOSINOPHILS % (AUTO) 3.8 % (0.0-6.0); HEMATOCRIT 24 % (39-51); HEMOGLOBIN 7.9 g/dL (13.5-17.5); LYMPHOCYTES # (AUTO) 1.4 K/uL (0.8-4.8); LYMPHOCYTES % (AUTO) 30.7 % (20.0-44.0); MEAN CORPUSCULAR HEMOGLOBIN 30 PG (26.0-33.0); MEAN CORPUSCULAR HGB CONC 33 g/dl (31.0-36.0); MEAN CORPUSCULAR VOLUME 90 fL (80-96); MONOCYTES # (AUTO) 0.6 K/uL (0.1-1.30); MONOCYTES % (AUTO) 12.5 % (2.0-12.0); NEUTROPHILS # (AUTO) 2.3 K/uL (1.8-8.9); NEUTROPHILS % (AUTO) 52.1 % (43.0-81.0); RED BLOOD CELL COUNT(AUTO) 2.64 MIL/uL (4.5-6.0); RED CELL DISTRIBUTION WIDTH 15.7 % (11.5-15.0); WHITE BLOOD COUNT (AUTO) 4.5 K/uL (4.3-11.0)
[2024-11-15 08:18] LABS: PLATELET COUNT (AUTO) 37 K/uL (150-450)
[2024-11-15 08:43] VITALS: BP 135/64; TEMP 98.1; O2SAT 94
[2024-11-15 12:19] LABS: EOSINOPHILS % (MANUAL) 3 % (0-4); LYMPHOCYTES % (MANUAL) 27 % (16-48); MONOCYTES % (MANUAL) 7 % (0-11.0); NEUTROPHILS % (MANUAL) 63 (42-76); PLATELET ESTIMATE DECREASED
[2024-11-15 12:20] LABS: ANISOCYTOSIS 1+
[2024-11-15] MEDS ORDERED: GLIP5TAB13 PO (13:10)
[2024-11-15] MEDS ORDERED: MERO500V23 IV (13:10)
[2024-11-15 16:16] VITALS: BP 113/75; TEMP 97.9; O2SAT 96
[2024-11-15 20:00] VITALS: BP 125/95; TEMP 97.5; O2SAT 99
[2024-11-15 22:00] VITALS: BP 101/56
[2024-11-16 20:00] VITALS: BP 130/63; TEMP 97.9; O2SAT 95
[2024-11-16 20:03] VITALS: BP 130/63; TEMP 97.9; O2SAT 95
[2024-11-16 20:20] VITALS: BP 130/63; TEMP 97.9; O2SAT 95
[2024-11-17 07:00] VITALS: BP 124/66; TEMP 97.5; O2SAT 93
[2024-11-17 11:36] VITALS: BP 124/59
== END 2024-11-17 15:34 | disposition home health service (06) ==
LOC: ER 18:44 → TELE 23:41 → MED 11-09 10:50
PROVIDERS: ADMIT Student in an Organized Health Care Education/Training Program; ATTEND Nurse Practitioner Acute Care
PROC: 05HM33Z Insertion of Infusion Device into Right Internal Jugular Vein, Percutaneous Approach (ICD-10-PCS; 2024-11-11)
PROC: B543ZZA Ultrasonography of Right Jugular Veins, Guidance (ICD-10-PCS; 2024-11-11)
PROC: 02HV33Z Insertion of Infusion Device into Superior Vena Cava, Percutaneous Approach (ICD-10-PCS; 2024-11-14)
PROC: B518YZA Fluoroscopy of Superior Vena Cava using Other Contrast, Guidance (ICD-10-PCS; 2024-11-14)
PROC: 5A1D70Z Performance of Urinary Filtration, Intermittent, Less than 6 Hours Per Day (ICD-10-PCS; 2024-11-14)
PROC: 30233R1 Transfusion of Nonautologous Platelets into Peripheral Vein, Percutaneous Approach (ICD-10-PCS; 2024-11-14)
PROC: 0JH63XZ Insertion of Tunneled Vascular Access Device into Chest Subcutaneous Tissue and Fascia, Percutaneous Approach (ICD-10-PCS; principal; 2024-11-14 09:55)
DX: K74.60 Unspecified cirrhosis of liver (principal); K76.7 Hepatorenal syndrome; D61.818 Other pancytopenia; D69.6 Thrombocytopenia, unspecified; I12.0 Hypertensive chronic kidney disease with stage 5 chronic kidney disease or end stage renal disease; N17.9 Acute kidney failure, unspecified; E87.79 Other fluid overload; E83.9 Disorder of mineral metabolism, unspecified; J90 Pleural effusion, not elsewhere classified; N18.6 End stage renal disease; N39.0 Urinary tract infection, site not specified; K76.6 Portal hypertension; E11.22 Type 2 diabetes mellitus with diabetic chronic kidney disease; B96.20 Unspecified Escherichia coli [E. coli] as the cause of diseases classified elsewhere; D64.9 Anemia, unspecified; N50.89 Other specified disorders of the male genital organs; E03.9 Hypothyroidism, unspecified; Z79.4 Long term (current) use of insulin; N50.82 Scrotal pain; Z16.12 Extended spectrum beta lactamase (ESBL) resistance; Z79.84 Long term (current) use of oral hypoglycemic drugs; R18.8 Other ascites; R16.1 Splenomegaly, not elsewhere classified; Z90.79 Acquired absence of other genital organ(s); I25.2 Old myocardial infarction
CPT/HCPCS: 36415; 71045-TC; 76770-TC; 76870-TC; 80048-TC; 80053-TC; 80076-TC; 81001; 82140-TC; 82570-TC; 82962-TC; 83735-TC; 84100-TC; 84155; 84165; 84300-TC; 85025-TC; 85610-TC; 86704; 86705; 86706; 86803; 86850-TC; 87040-TC; 87086-TC; 87186-TC; 87340; 90935-TC; 93307-TC; 97110-TC; 97116-TC; 97530-TC; 97535-TC; A4223; A6403; C1750; C1769; G0378; J0696; J1644; J1815; J2185; J2270; J2405; J2704; J2997; J3490; J7030; J7050; J7060; P9034

== ENCOUNTER 2025-03-29 20:08 | Inpatient (IN) | payer OTHER ==
[~2025-03-29] VITALS: Ht 170.2 cm; Wt 82.6 kg
[~2025-03-29 20:08] MED LIST changes: -CEPH500C2 PO; -DOCU-141 PO; -FURO40TA5 PO; +GLIP5TAB13 PO; +MERO500V23 IV; -METF-881 PO
[2025-03-29] MEDS: IV NS 0.9% 500 ML BAG IV ONE ×2 (20:45→23:15)
[2025-03-29 20:46] LABS: PLATELET COUNT (AUTO) 72 K/uL (150-450); RED BLOOD CELL COUNT(AUTO) 3.75 MIL/uL (4.5-6.0); RED CELL DISTRIBUTION WIDTH 16.0 % (11.5-15.0); WHITE BLOOD COUNT (AUTO) 6.6 K/uL (4.3-11.0)
[2025-03-29 20:54] LABS: INR 1.23 (0.91-1.10)
[2025-03-29 20:55] LABS: ASPARTATE AMINOTRANSFERASE 25 U/L (15-37); CALCIUM, SERUM 8.4 mg/dL (8.5-10.1); CREATININE 4.1 mg/dL (0.6-1.3); SODIUM SERUM 136 mmol/L (136-145); TOTAL PROTEIN, SERUM 7.9 g/dL (6.4-8.2); UREA NITROGEN, BLOOD 29 mg/dL (7-18)
[2025-03-29 21:00] LABS: LACTIC ACID 2.2 mmol/L (0.4-2.0)
[2025-03-29 21:28] LABS: LYMPHOCYTES % (MANUAL) 12 % (16-48); MONOCYTES % (MANUAL) 5 % (0-11.0); NEUTROPHILS % (MANUAL) 83 (42-76)
[2025-03-29 21:29] LABS: PLATELET ESTIMATE DECREASED
[2025-03-29] MEDS ORDERED: PIPERACI/TAZO 3.375GM/D5W 50ML PB IV ONE (22:06)
[2025-03-29] MEDS: PIPERACILLIN /TAZOBACTAM 3.375 G in IV D5W 50 ML IV ONE (22:10)
[2025-03-29] MEDS ORDERED: AMIODARONE 150 MG/3 ML VIAL IV ONE (22:30)
[2025-03-29] MEDS ORDERED: ONDANSETRON HCL/PF 4 MG/2 ML VIAL IVP PRN (22:30)
[2025-03-29] MEDS ORDERED: Z GUARD REMEDY 4 OZ OINT TP PRN (22:30)
[2025-03-29] MEDS ORDERED: ACETAMINOPHEN 325 MG TABLET PO PRN (22:30)
[2025-03-30] MEDS ORDERED: AMIODARONE 150 MG/3 ML VIAL IV ONE ×2 (00:58→01:15)
[2025-03-30] MEDS ORDERED: DOSING PER PHARMACY-ZOSYN IV 1 EA EA XX PRN (01:00)
[2025-03-30] MEDS ORDERED: DEXTROSE 50%-WATER 50 ML DISP.SYRIN IV PRN (01:00)
[2025-03-30] MEDS: AMIODARONE 150 MG in IV D5W 100 ML IV ONE (01:03)
[2025-03-30] MEDS: AMIODARONE 450 MG in IV D5W 241 ML IV PRN (01:18)
[2025-03-30 04:00] VITALS: BP 133/82; TEMP 97.8; O2SAT 99
[2025-03-30] MEDS: INSULIN REGULAR, HUMAN 100 UNIT/ML 3 ML VIAL SQ PRN (06:22)
[2025-03-30] MEDS: BLOOD SUGAR DIAGNOSTIC 1 EACH STRIP IN SCH (06:22)
[2025-03-30] MEDS ORDERED: PIPERCILLIN/TAZOBACTAM 2.25GM/D5W 50MLPB IV ONE (06:36)
[2025-03-30] MEDS: PIPERACILLIN /TAZOBACTAM 2.25 G in IV D5W 50 ML IV SCH (06:37)
[2025-03-30 07:20] LABS: PLATELET COUNT (AUTO) 77 K/uL (150-450); RED BLOOD CELL COUNT(AUTO) 3.51 MIL/uL (4.5-6.0); WHITE BLOOD COUNT (AUTO) 5.3 K/uL (4.3-11.0)
[2025-03-30 08:00] VITALS: BP 142/77; TEMP 98; O2SAT 98
[2025-03-30 08:17] LABS: APPEARANCE,URINE SLIGHTLY CLOUDY (CLEAR); UGLUCOSE NEGATIVE (NEGATIVE)
[2025-03-30 08:18] LABS: BLOOD, URINE 2+ Ery/uL (NEGATIVE); LEUKOCYTE ESTERASE ,URINE 3+ (NEGATIVE); NITRITE, URINE NEGATIVE (NEGATIVE)
[2025-03-30] MEDS: METOPROLOL TARTRATE 25 MG TABLET PO SCH (08:24)
[2025-03-30] MEDS: CHOLECALCIFEROL 1,000 UNIT TABLET (VIT D3) PO SCH (08:24)
[2025-03-30] MEDS: PANTOPRAZOLE 40 MG TABLET.DR PO SCH (08:24)
[2025-03-30] MEDS: ASCORBIC ACID 500 MG TABLET PO SCH (08:24)
[2025-03-30] MEDS: LEVOTHYROXINE SODIUM 50 MCG TABLET PO SCH (08:24)
[2025-03-30] MEDS: THIAMINE HCL 100 MG TABLET PO SCH (08:24)
[2025-03-30 08:30] LABS: SODIUM SERUM 136.0 mmol/L (136-145)
[2025-03-30 08:31] LABS: CALCIUM, SERUM 8.5 mg/dL (8.5-10.1); UREA NITROGEN, BLOOD 36.0 mg/dL (7-18)
[2025-03-30 08:32] LABS: CREATININE 4.8 mg/dL (0.6-1.3); PHOSPHORUS 5.2 mg/dL (2.5-4.9)
[2025-03-30 09:11] LABS: ADD URINE CULTURE YES; SQUAMOUS EPITHELIAL CELL,UR Few /HPF (None Seen)
[2025-03-30 09:15] LABS: NEUTROPHILS % (MANUAL) 56 (42-76)
[2025-03-30 09:16] LABS: LYMPHOCYTES % (MANUAL) 36 % (16-48); MONOCYTES % (MANUAL) 8 % (0-11.0); PLATELET ESTIMATE DECREASED
[2025-03-30 11:56] VITALS: BP_SYST 113; BP_SYST 124; BP_SYST 91; BP_DIAS 63; BP_DIAS 65; BP_DIAS 66
[2025-03-30 12:00] VITALS: BP 119/70; TEMP 97.5; O2SAT 98
[2025-03-30 12:47] LABS: IRON, SERUM 170.0 ug/dl (50-175)
[2025-03-30 13:04] LABS: RHEUMATOID FACTOR SCREEN NEGATIVE (NEGATIVE)
[2025-03-30 16:00] VITALS: BP 132/69; TEMP 98.3; O2SAT 99
[2025-03-30 20:00] VITALS: BP 118/64; TEMP 97.7; O2SAT 97
[2025-03-31] VITALS: BP 122/68; TEMP 97.9; O2SAT 96
[2025-03-31 04:00] VITALS: BP 133/72; TEMP 97.5; O2SAT 96
[2025-03-31 07:00] LABS: PLATELET COUNT (AUTO) 77 K/uL (150-450); RED BLOOD CELL COUNT(AUTO) 3.23 MIL/uL (4.5-6.0); RED CELL DISTRIBUTION WIDTH 16.1 % (11.5-15.0); WHITE BLOOD COUNT (AUTO) 4.9 K/uL (4.3-11.0)
[2025-03-31 07:07] LABS: FREE KAPPA LT CHAINS SERUM 223.9 mg/L (3.3-19.4); FREE LAMBDA LT CHAIN SERUM 156.8 mg/L (5.7-26.3); KAPPA/LAMBDA RATIO SERUM 1.43 (0.26-1.65)
[2025-03-31 07:21] LABS: ASPARTATE AMINOTRANSFERASE 22.0 U/L (15-37); CALCIUM, SERUM 8.8 mg/dL (8.5-10.1); CREATININE 6.1 mg/dL (0.6-1.3); PHOSPHORUS 5.7 mg/dL (2.5-4.9); SODIUM SERUM 135.0 mmol/L (136-145); TOTAL PROTEIN, SERUM 7.1 g/dL (6.4-8.2); UREA NITROGEN, BLOOD 49.0 mg/dL (7-18)
[2025-03-31 08:00] VITALS: BP 116/69; TEMP 97.5; O2SAT 100
[2025-03-31 08:07] LABS: HEPATITIS B SURFACE AB (QUAL) Non Reactive (.); IMMUNOGLOBULIN A, SERUM 503 mg/dL (90-386); IMMUNOGLOBULIN M, SERUM 102 mg/dL (20-172)
[2025-03-31 08:18] LABS: EOSINOPHILS % (MANUAL) 4 % (0-4); LYMPHOCYTES % (MANUAL) 41 % (16-48); MONOCYTES % (MANUAL) 14 % (0-11.0); NEUTROPHILS % (MANUAL) 41 (42-76); PLATELET ESTIMATE DECREASED
[2025-03-31 09:08] LABS: *ANA ANTI-CENTROMERE B AB <0.2 AI (0.0-0.9); *ANA ANTI-DNA(DS) AB, QN 2 IU/mL (0-9); *ANA ANTI-JO-1 <0.2 AI (0.0-0.9); *ANA ANTICHROMATIN ANTIBODY <0.2 AI (0.0-0.9); *ANA RNP ANTIBODIES 2.0 AI (0.0-0.9); *ANA SJOGREN'S ANTI-SS-A 0.2 AI (0.0-0.9); *ANA SJOGREN'S ANTI-SS-B <0.2 AI (0.0-0.9); *ANAANTI-SCLERODERMA-70 AB <0.2 AI (0.0-0.9); *ANASMITH AB 0.3 AI (0.0-0.9)
[2025-03-31 10:07] LABS: FOLIC ACID > 20.0 ng/mL (>3.0)
[2025-03-31] MEDS: CEFTRIAXONE 1 G in IV D5W 50 ML IV SCH (14:53)
[2025-03-31 16:00] VITALS: BP 129/64; TEMP 97.5; O2SAT 97
[2025-03-31 20:00] VITALS: BP 124/64; TEMP 98.2; O2SAT 97
[2025-04-01] VITALS: BP 131/70; TEMP 98.6; O2SAT 96
[2025-04-01 04:00] VITALS: BP 152/66; TEMP 97.7; O2SAT 97
[2025-04-01 06:44] LABS: PLATELET COUNT (AUTO) 62 K/uL (150-450); RED BLOOD CELL COUNT(AUTO) 3.25 MIL/uL (4.5-6.0); RED CELL DISTRIBUTION WIDTH 16.0 % (11.5-15.0); WHITE BLOOD COUNT (AUTO) 5.2 K/uL (4.3-11.0)
[2025-04-01 07:01] LABS: CALCIUM, SERUM 8.9 mg/dL (8.5-10.1); CREATININE 5.6 mg/dL (0.6-1.3); PHOSPHORUS 5.8 mg/dL (2.5-4.9); SODIUM SERUM 135.0 mmol/L (136-145); UREA NITROGEN, BLOOD 44.0 mg/dL (7-18)
[2025-04-01 08:00] VITALS: BP 128/74; TEMP 97.9
[2025-04-01 08:08] LABS: EOSINOPHILS % (MANUAL) 2 % (0-4); LYMPHOCYTES % (MANUAL) 33 % (16-48); MONOCYTES % (MANUAL) 12 % (0-11.0); NEUTROPHILS % (MANUAL) 53 (42-76)
[2025-04-01 08:09] LABS: PLATELET ESTIMATE DECREASED
[2025-04-01] MEDS ORDERED: APIX5TAB PO (11:22)
[2025-04-01] MEDS ORDERED: CEPH500C2 PO (11:26)
[2025-04-01 12:00] VITALS: BP 132/86; TEMP 98.7; O2SAT 98
[2025-04-01] MEDS: APIXABAN 5 MG TABLET PO SCH (12:02)
[2025-04-04] MEDS ORDERED: SULF-293 PO (11:53)
[2025-04-04] MEDS ORDERED: SULF-11 PO (16:59)
== END 2025-04-01 14:35 | disposition home or self-care (01) | DRG 201 ==
LOC: ER 20:09 → TELE 22:37 → TELE1 23:05 → TELE-TD 03-30 01:56 → TELE1 03-31 09:30
PROVIDERS: ADMIT Registered Nurse Psychiatric/Mental Health; ATTEND Nurse Practitioner Family
PROC: 5A1D70Z Performance of Urinary Filtration, Intermittent, Less than 6 Hours Per Day (ICD-10-PCS; principal; 2025-03-31)
DX: I48.0 Paroxysmal atrial fibrillation (principal); D61.818 Other pancytopenia; E87.20 Acidosis, unspecified; D69.6 Thrombocytopenia, unspecified; I12.0 Hypertensive chronic kidney disease with stage 5 chronic kidney disease or end stage renal disease; D63.8 Anemia in other chronic diseases classified elsewhere; E87.1 Hypo-osmolality and hyponatremia; J15.9 Unspecified bacterial pneumonia; N18.6 End stage renal disease; E88.09 Other disorders of plasma-protein metabolism, not elsewhere classified; D72.821 Monocytosis (symptomatic); I25.10 Atherosclerotic heart disease of native coronary artery without angina pectoris; K74.60 Unspecified cirrhosis of liver; Z79.01 Long term (current) use of anticoagulants; Z79.84 Long term (current) use of oral hypoglycemic drugs; E11.22 Type 2 diabetes mellitus with diabetic chronic kidney disease; E80.6 Other disorders of bilirubin metabolism; R16.1 Splenomegaly, not elsewhere classified; Z99.2 Dependence on renal dialysis; N39.0 Urinary tract infection, site not specified; B96.20 Unspecified Escherichia coli [E. coli] as the cause of diseases classified elsewhere; Z16.12 Extended spectrum beta lactamase (ESBL) resistance
CPT/HCPCS: 36415; 70450-TC; 71045-TC; 76700-TC; 80048-TC; 80053-TC; 80076-TC; 81001; 82607-TC; 82728-TC; 82784; 82962-TC; 83540-TC; 83605-TC; 83735-TC; 84100-TC; 84155; 84165; 84439-TC; 84443-TC; 84484-TC; 85027-TC; 85730-TC; 86225; 86235; 86334; 86431-TC; 86706; 86803; 87040-TC; 87081-TC; 87086-TC; 87186-TC; 87340; 93307-TC; A4223; G0378; J0282; J0696; J1815; J2543; J7030; J7040; J7050; J7060

== ENCOUNTER 2025-06-28 10:22 | Inpatient (IN) | payer OTHER ==
[~2025-06-28] VITALS: Ht 165.1 cm; Wt 87.5 kg
[~2025-06-28 10:22] MED LIST changes: +APIX5TAB PO; +CEPH500C2 PO; +SULF-11 PO; +SULF-293 PO
[2025-06-28 11:28] LABS: PLATELET COUNT (AUTO) 81 K/uL (150-450); RED BLOOD CELL COUNT(AUTO) 2.56 MIL/uL (4.5-6.0); RED CELL DISTRIBUTION WIDTH 15.8 % (11.5-15.0); WHITE BLOOD COUNT (AUTO) 3.7 K/uL (4.3-11.0)
[2025-06-28 11:34] LABS: ALCOHOL, BLOOD < 3 mg/dL (0-10)
[2025-06-28 11:40] LABS: CALCIUM, SERUM 8.8 mg/dL (8.5-10.1); SODIUM SERUM 136 mmol/L (136-145); UREA NITROGEN, BLOOD 57 mg/dL (7-18)
[2025-06-28 11:42] LABS: CREATININE 9.2 mg/dL (0.6-1.3)
[2025-06-28 12:16] LABS: AMPHETAMINE, URINE NEGATIVE (NEGATIVE); BARBITURATE, URINE NEGATIVE (NEGATIVE); BENZODIAZEPINE, URINE NEGATIVE (NEGATIVE); CANNABINOID, URINE NEGATIVE (NEGATIVE); COCCAINE, URINE NEGATIVE (NEGATIVE); OPIATE, URINE NEGATIVE (NEGATIVE)
[2025-06-28 13:46] LABS: EOSINOPHILS % (MANUAL) 1 % (0-4); LYMPHOCYTES % (MANUAL) 21 % (16-48); MONOCYTES % (MANUAL) 9 % (0-11.0); NEUTROPHILS % (MANUAL) 69 (42-76); PLATELET ESTIMATE DECREASED
[2025-06-28] MEDS ORDERED: ACETAMINOPHEN 325 MG TABLET PO PRN (14:00)
[2025-06-28] MEDS ORDERED: MAG HYDROX/AL HYDROX/SIMETH 30 ML UDC PO PRN (14:00)
[2025-06-28] MEDS ORDERED: Z GUARD REMEDY 4 OZ OINT TP PRN (14:00)
[2025-06-28] MEDS ORDERED: ZOLPIDEM TARTRATE 5 MG TABLET PO PRN (14:00)
[2025-06-28] MEDS ORDERED: MAGNESIUM HYDROXIDE 30 ML UDC PO PRN (14:00)
[2025-06-28 14:17] LABS: ASPARTATE AMINOTRANSFERASE 35.0 U/L (15-37); TOTAL PROTEIN, SERUM 7.4 g/dL (6.4-8.2)
[2025-06-28 15:38] VITALS: BP 152/75; TEMP 98.6; O2SAT 97
[2025-06-28 20:00] VITALS: BP 160/65; TEMP 97.5; O2SAT 97
[2025-06-28 20:11] LABS: SERUM AMMONIA 97 umol/L (11-32)
[2025-06-28] MEDS: LACTULOSE 10 G/15 ML UDC (PYXIS) PR ONE (22:19)
[2025-06-29] VITALS: BP 147/62; TEMP 97.7; O2SAT 97
[2025-06-29 04:00] VITALS: BP 141/67; TEMP 97.7; O2SAT 97
[2025-06-29 07:42] LABS: PLATELET COUNT (AUTO) 83 K/uL (150-450); RED BLOOD CELL COUNT(AUTO) 2.55 MIL/uL (4.5-6.0); RED CELL DISTRIBUTION WIDTH 16.1 % (11.5-15.0); WHITE BLOOD COUNT (AUTO) 3.5 K/uL (4.3-11.0)
[2025-06-29 07:57] LABS: CALCIUM, SERUM 9.0 mg/dL (8.5-10.1); PHOSPHORUS 5.5 mg/dL (2.5-4.9); SODIUM SERUM 146.0 mmol/L (136-145); UREA NITROGEN, BLOOD 62.0 mg/dL (7-18)
[2025-06-29 08:00] VITALS: BP 144/74; TEMP 97.5; O2SAT 99
[2025-06-29 08:01] LABS: CREATININE 9.9 mg/dL (0.6-1.3)
[2025-06-29] MEDS: LACTULOSE 10 G/15 ML UDC (PYXIS) PO SCH (09:30)
[2025-06-29] MEDS: LEVOTHYROXINE SODIUM 50 MCG TABLET PO SCH (09:31)
[2025-06-29 10:03] LABS: EOSINOPHILS % (MANUAL) 1 % (0-4); LYMPHOCYTES % (MANUAL) 21 % (16-48); MONOCYTES % (MANUAL) 6 % (0-11.0); NEUTROPHILS % (MANUAL) 72 (42-76); PLATELET ESTIMATE DECREASED
[2025-06-29 16:00] VITALS: BP 157/75; TEMP 97.9; O2SAT 96
[2025-06-29 20:00] VITALS: BP 126/76; TEMP 97.5; O2SAT 99
[2025-06-30] MEDS: ONDANSETRON HCL/PF 4 MG/2 ML VIAL IVP PRN (01:07)
[2025-06-30] MEDS ORDERED: BENZONATATE 100 MG CAPSULE PO PRN (03:00)
[2025-06-30] MEDS: GUAIFENESIN 300 MG/15 ML UDC PO PRN (03:34)
[2025-06-30 04:00] VITALS: BP 145/88; TEMP 97.9; O2SAT 99
[2025-06-30 07:30] VITALS: BP 107/69; TEMP 98.2; O2SAT 97
[2025-06-30 07:45] LABS: PLATELET COUNT (AUTO) 84 K/uL (150-450); RED BLOOD CELL COUNT(AUTO) 2.80 MIL/uL (4.5-6.0); RED CELL DISTRIBUTION WIDTH 16.1 % (11.5-15.0); WHITE BLOOD COUNT (AUTO) 4.5 K/uL (4.3-11.0)
[2025-06-30 07:53] LABS: ASPARTATE AMINOTRANSFERASE 30.0 U/L (15-37); CALCIUM, SERUM 8.2 mg/dL (8.5-10.1); CREATININE 6.3 mg/dL (0.6-1.3); PHOSPHORUS 4.9 mg/dL (2.5-4.9); SODIUM SERUM 140.0 mmol/L (136-145); TOTAL PROTEIN, SERUM 6.6 g/dL (6.4-8.2); UREA NITROGEN, BLOOD 35.0 mg/dL (7-18)
[2025-06-30 08:00] VITALS: BP 107/69; TEMP 98.2; O2SAT 97
[2025-06-30 11:17] LABS: EOSINOPHILS % (MANUAL) 1 % (0-4); LYMPHOCYTES % (MANUAL) 39 % (16-48); MONOCYTES % (MANUAL) 6 % (0-11.0); NEUTROPHILS % (MANUAL) 54 (42-76); PLATELET ESTIMATE DECREASED
[2025-06-30 16:00] VITALS: BP 110/57; TEMP 97.5; O2SAT 97
[2025-06-30] MEDS ORDERED: LEVO50TA PO (16:30)
[2025-06-30] MEDS ORDERED: LACT10SO58 PO (16:30)
== END 2025-06-30 17:50 | disposition home or self-care (01) ==
LOC: ER 10:29 → TELE1 14:57 → MEDSG1 06-29 10:01
PROVIDERS: ADMIT Internal Medicine; ATTEND Internal Medicine
PROC: 5A1D70Z Performance of Urinary Filtration, Intermittent, Less than 6 Hours Per Day (ICD-10-PCS; principal; 2025-06-29)
DX: K76.82 Hepatic encephalopathy (principal); G93.41 Metabolic encephalopathy; E87.20 Acidosis, unspecified; E87.0 Hyperosmolality and hypernatremia; D63.8 Anemia in other chronic diseases classified elsewhere; I12.0 Hypertensive chronic kidney disease with stage 5 chronic kidney disease or end stage renal disease; D69.6 Thrombocytopenia, unspecified; N18.6 End stage renal disease; Z99.2 Dependence on renal dialysis; Z79.01 Long term (current) use of anticoagulants; E11.22 Type 2 diabetes mellitus with diabetic chronic kidney disease; K74.60 Unspecified cirrhosis of liver; I48.91 Unspecified atrial fibrillation; E87.70 Fluid overload, unspecified; I25.2 Old myocardial infarction; Z79.84 Long term (current) use of oral hypoglycemic drugs; D68.69 Other thrombophilia; E83.89 Other disorders of mineral metabolism
CPT/HCPCS: 36415; 70450-TC; 71045-TC; 80048-TC; 80053-TC; 80076-TC; 82140-TC; 82962-TC; 83735-TC; 84100-TC; 84443-TC; 84484-TC; 85027-TC; 90935-TC; G0378; G0480; J2405; J7030